=== PATIENT | female | born 1940 | race Caucasian/White ===

== ENCOUNTER 2016-12-16 13:30 | Emergency (ER) | payer MEDICARE, BC ==
[2016-12-16] MEDS ORDERED: Acetaminophen/oxyCODONE 325-5 MG Tab PO ONE (13:57)
[2016-12-16] MEDS ORDERED: Ibuprofen 600 MG Tab PO ONE (13:57)
[2016-12-16] MEDS ORDERED: Ondansetron 4 MG Tab.DIS PO ONE (13:58)
--- NOTE | 2016-12-16 14:00 | EDM.PDOC ---
ED HPI GENERAL MEDICAL PROBLEM - General Chief Complaint: Neck Problem Stated Complaint: STIFF NECK Time Seen by Provider: 12/16/16 13:55 Source of Information: Reports: Patient, Family (friend) History Limitations: Reports: No Limitations - History of Present Illness INITIAL COMMENTS - FREE TEXT/NARRATIVE: 76-year-old female presents to the ED due to severe right-sided cervical neck pain. No known falls or recent trauma. Pain was present yesterday but was milder. Today the pain is constant and severe and made worse by any movement. She more or less almost has to hold her head perfectly still sometimes has to hold onto the right side of her neck to walk or move particular to get out of bed. The radicular pain into either upper extremity or her down her back. No previous fractures of her cervical spine identified or known to her. She does have a history of osteoporosis and osteoarthritis. She took some Tylenol for pain this morning which did not help at all. 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 Neck Pain Score (Numeric/FACES): 7 - Related Data Allergies Allergy/AdvReac Type Severity Reaction Status Date / Time latex Allergy Swelling Verified 12/16/16 13:43 sertraline [From Zoloft] Allergy Rash Verified 12/16/16 13:43 Wrexqqy-Vrx-Ezm Reductase Allergy Leg Cramps Verified 12/16/16 13:43 Inhibitor Home Meds: Home Meds Diclofenac Sodium [Voltaren] 50 mg PO BIDMEALS #20 tab.ec 12/16/16 [Rx] oxyCODONE HCl/Acetaminophen [Percocet 5-325 mg Tablet] 1 - 2 each PO Q4H PRN # 12 tablet 12/16/16 [Rx] predniSONE [Deltasone] 20 mg PO ASDIRECTED #15 tablet 12/16/16 [Rx] Past Medical History HEENT History: Reports: Cataract Cardiovascular History: Reports: High Cholesterol, Hypertension Respiratory History: Reports: COPD, Pneumonia, Recurrent Gastrointestinal History: Reports: Chronic Constipation, GERD 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: 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, , Spontaneous Musculoskeletal History: Reports: Back Pain, Chronic, Gout, Other (See Below) Other Musculoskeletal History: gout to great toes bialteral Neurological History: Reports: Other (See Below) Other Neuro History: hemorrahgic stroke Endocrine/Metabolic History: Reports: Hypothyroidism Oncologic (Cancer) History: Reports: Basal Cell Carcinoma, Other (See Below) Other Oncologic History: from nose - Infectious Disease History Infectious Disease History: Reports: Chicken Pox, Measles, Mumps - Past Surgical History HEENT Surgical History: Reports: Cataract Surgery Female Surgical History: Reports: Hysterectomy Endocrine Surgical History: Reports: None Musculoskeletal Surgical History: Reports: Knee Replacement, Other (See Below) Other Musculoskeletal Surgeries/Procedures:: Right knee replacement and surgical plate in right thigh Social & Family History - Tobacco Use Smoking Status *Q: Former Smoker Used Tobacco, but Quit: Yes Month Tobacco Last Used: 15 years ago Second Hand Smoke Exposure: No - Caffeine Use Caffeine Use: Reports: Coffee - Recreational Drug Use Recreational Drug Use: No - Living Situation & Occupation Living situation: Reports: Occupation: Retired ED ROS GENERAL - Review of Systems Review Of Systems: See Below Constitutional: Denies: Fever, Chills, Malaise, Weakness, Fatigue, Decreased Appetite, Weight Loss HEENT: Reports: Glasses. Denies: Hearing Loss Respiratory: Reports: Shortness of Breath (On exertion.) Cardiovascular: Reports: Blood Pressure Problem, Dyspnea on Exertion ( Chronically). Denies: Chest Pain, Claudication, Edema, Lightheadedness, Orthopnea (Hypertension usually well-controlled with medication) : Reports: No Symptoms Musculoskeletal: Reports: Neck Pain (See history of present illness), Back Pain , Joint Pain Skin: Reports: No Symptoms (Knees and hips at times) Neurological: Reports: No Symptoms Psychiatric: Reports: No Symptoms ED EXAM, UPPER BACK/NECK PAIN - Physical Exam Exam: See Below Exam Limited By: No Limitations General Appearance: Alert, WD/WN, Moderate Distress Eye Exam: Bilateral Eye: Normal Inspection Ears Exam: Normal External Exam Throat/Mouth Exam: Normal Inspection, Normal Oropharynx Head Exam: Atraumatic, Normocephalic Neck Exam: Normal Alignment, Normal Inspection, Limited Range of Motion, Muscle Spasm, Painful Range of Motion (Moderate right side of the neck. From cervical 4 -6 cervical 7.), Paraspinous Muscle Tender (Right paraspinal neck), Stiff Neck, Tenderness, Tender Lateral. No: Spinous Processes Tender Nexus Criteria: No: Posterior, Midline Cervical Tenderness, Evidence of Intoxication, Altered Level of Consciousness, Focal Neurological Deficit, Painful Distraction Injuries Cardiovascular/Respiratory: Regular Rate, Rhythm Course - Vital Signs Last Recorded V/S: Last Vital Signs Temp 36.3 C 12/16/16 13:39 Pulse 72 12/16/16 13:39 Resp 18 12/16/16 13:39 BP 149/65 H 12/16/16 13:39 Pulse Ox 93 L 12/16/16 13:39 - Orders/Labs/Meds Orders: Active Orders 24 hr Category Date Time Status Cervical Spine wo Cont [CT] Stat Exams 12/16/16 13:56 Taken Meds: Medications Discontinued Medications Generic Name Dose Route Start Last Admin Trade Name Freq PRN Reason Stop Dose Admin Ibuprofen 600 mg 12/16/16 13:57 12/16/16 14:06 Motrin PO 12/16/16 13:58 600 mg ONETIME ONE Administration Ondansetron HCl 4 mg 12/16/16 13:58 12/16/16 14:06 Zofran Odt PO 12/16/16 13:59 4 mg ONETIME ONE Administration Oxycodone/Acetaminophen 1 tab 12/16/16 13:57 12/16/16 14:06 Percocet 325-5 Mg PO 12/16/16 13:58 1 tab ONETIME ONE Administration Prednisone 20 mg 12/16/16 14:28 Prednisone PO 12/16/16 14:29 ONETIME ONE - Radiology Interpretation Free Text/Narrative:: 76-year-old female presents the ED with severe right-sided neck pain. Pain was present yesterday when she awoke and is gradually worsened since that time. Today she has to hold onto her neck to walk or move. Pain is excruciating. No known falls or recent injuries. Sleeping in a normal bed and her normal pillow. By history she does have some osteoarthritis and osteoporosis. Denies any radiculopathy into her right upper arm extremity or down her right upper back. No previous fractures in her cervical spine that she knows of. Exam reveals marked tenderness throughout the mid and lower cervical spine on the right side. Mild overlying muscle spasm. Plan CT cervical spine to be done. Given Motrin 600 mg by mouth and 1 Percocet 5/3/25 milligram tablet per mouth as well as Zofran 4 mg for pain relief. - Re-Assessments/Exams Free Text/Narrative Re-Assessment/Exam: 12/16/16 14:15 CT cervical spine reveals degenerative changes that correlate with her area of marked tenderness at the C3 C4 C5 level on the right side it is much worse on the right side as compared to the left. Her abdomen maladies appreciated. Patient will be placed on a short course of steroids 29 g of prednisone twice a day for 5 days and then once daily in the morning for another 5 days. This will be in combination with Voltaren 50 mg twice a day for 10 days. This is provisional after I see her med list as it was not available on my initial evaluation. 12/16/16 14:34 her med list has no contraindications. The above medications are therefore filled and also 12 tablets of Percocet were provided 5/325 milligrams strength one every 6 hours as necessary for pain relief as she didn't sleep at all last night due to the severity of the pain. 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 predniSONE [Deltasone] 20 mg PO ASDIRECTED #15 tablet Instructions: Osteoarthritis Referrals: Linda Holloway [employer] [employer] [Primary Care Provider] - Forms: ED Department Discharge Additional Instructions: Evaluation the emergency room today in regards to acute onset of severe right- sided neck pain for no apparent reason. Examination reveals marked tenderness along the bones of the cervical spine particularly the mid spine C3 C4 C5. CT of the neck bones was carried out and reveals advanced degenerative arthritic changes in the facet joints on the right side as compared to the left. This is the source of your pain. Treatment is therefore medications to try and reduce the pain and inflammation in this area. Use Deltasone 20 mg with breakfast and supper for 5 days and then once daily in the morning for another 5 days. First tablet was provided through the ED today. Secondly may use Voltaren 50 mg twice daily for 10 days to days pain and inflammation. Thirdly Percocet tablet 5/3/25 milligrams strength one tablet every 4-6 hours as necessary for pain relief with a little fluid in your stomach. Hopefully the neck pain will settle down fairly promptly over the next 4872 hours with the anti-inflammatory medications. Lopressor personal physician if not markedly improved in 7-10 days time. - My Orders Last 24 Hours: My Active Orders 12/16/16 13:56 Cervical Spine wo Cont [CT] Stat - Assessment/Plan Last 24 Hours: My Active Orders 12/16/16 13:56 Cervical Spine wo Cont [CT] Stat
[2016-12-16] MEDS ORDERED: predniSONE 20 MG Tab PO ONE (14:28)
--- NOTE | 2016-12-16 14:36 | CT ---
CT cervical spine Technique: Multiple axial sections were obtained from above C1 inferiorly to the bottom of T2. Reconstructed sagittal and coronal images were reviewed. Comparison: No previous cervical spine imaging. Findings: Degenerative change is noted between the dens and anterior arch of C1. Severe disc space narrowing noted at C4-C5, C5-C6 and C6-C7. Mild disc space narrowing noted at C3-C4 and C7-T1. Anterior endplate osteophytes are seen at C3-C4 through C7-T1. Mild degenerative spurring noted within the uncovertebral joints throughout the cervical spine. Vacuum phenomena is seen within the C4-C5 disc. Visualized mastoid sinuses and middle ear cavities are clear. Posterior skull base is intact. Mild right-sided neural foraminal stenosis noted at C3-C4. Minimal left-sided neural foraminal stenosis is noted at C3-C4. Moderate right-sided neural foraminal stenosis noted at C4-C5. Mild left-sided neural foraminal stenosis is noted at C4-C5. Mild bilateral neural foraminal stenosis is noted at C5-C6 and C6-C7. No bony central canal stenosis is noted. No acute fracture or abnormal subluxation is seen. Mild diffuse degenerative apophyseal change is seen. Impression: 1. Diffuse degenerative change as described above. No acute abnormality is seen. Diagnostic code #3
== END 2016-12-16 15:05 | disposition home or self-care (01) ==
LOC: JD.ED 13:30
DX: M47.812 Spondylosis without myelopathy or radiculopathy, cervical region (principal); Z91.040 Latex allergy status; Z88.8 Allergy status to other drugs, medicaments and biological substances; Z87.891 Personal history of nicotine dependence
CPT/HCPCS: 72125; 99284; A9270

== ENCOUNTER 2017-03-28 09:36 | Emergency (ER) | payer MEDICARE, BC ==
--- NOTE | 2017-03-28 11:39 | EDM.PDOC ---
ED HPI GENERAL MEDICAL PROBLEM - General Chief Complaint: Fever Stated Complaint: FEVER/SORE THROAT Time Seen by Provider: 03/28/17 11:10 Source of Information: Reports: Patient History Limitations: Reports: No Limitations - History of Present Illness INITIAL COMMENTS - FREE TEXT/NARRATIVE: Su is a pleasant 76yo female presents with 2-3 days hx of itchy, watery eyes, sinus congestion, this morning with sore thoat and cough. She had a low grade fever of "100" overnight with chills. No n/v/d, no back or abd pain. No CP , SOB or dizziness, she does have a dull headache. She has taken tylenol with minimal relief of symptoms. Eyes were both "glued shut" this morning. No sick contacts that she is aware of. She does not get flu shot as "I am allergic to latex". She also reports 2 wk hx of "black discharge" from her left nipple and a sensation of heaviness to her left breast. She is due for mammogram in July, prior mammo's have been normal. She states "I have lumpy breasts" so "I don't do breast exams". Other than recent development of cough 2-3 days ago she has not had cough, SOB. No axilla pain, swelling, pressure or tenderness. She swims and does water aerobics "10 hours a week" at the [facility]. PCP is MELANIE De Souza with [facility]. Onset: Gradual (2-3 days) Duration: Getting Worse Location: Reports: Head, Face (eyes, throat, cough) Quality: Reports: Burning (to eyes bilat) Severity: Moderate Improves with: Reports: None Worsens with: Reports: None Associated Symptoms: Reports: Cough, Fever/Chills, Headaches. 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 Throat Pain Score (Numeric/FACES): 7 - Related Data Allergies Allergy/AdvReac Type Severity Reaction Status Date / Time latex Allergy Swelling Verified 03/28/17 09:51 sertraline [From Zoloft] Allergy Rash Verified 03/28/17 09:51 Cwaklla-Vlt-Nah Reductase Allergy Leg Cramps Verified 03/28/17 09:51 Inhibitor Home Meds: Home Meds Aspirin 81 mg PO DAILY 03/28/17 [History] Calcium Carbonate [Calcium] 1 tab PO DAILY 03/28/17 [History] Denosumab [Prolia] 1 injection SUBCUT ASDIRECTED 03/28/17 [History] L.acidoph,Paracasei, B.lactis [Probiotic] 1 cap PO DAILY 03/28/17 [History] Levothyroxine 25 mg PO DAILY 03/28/17 [History] Lisinopril 30 mg PO DAILY 03/28/17 [History] Multivitamin [Multivitamins] 1 cap PO DAILY 03/28/17 [History] Omeprazole Magnesium [Prilosec Otc] 20 mg PO DAILY 03/28/17 [History] Potassium Chloride 20 meq PO DAILY 03/28/17 [History] Sucralfate [Carafate] 1 gram PO QID 03/28/17 [History] Ubidecarenone [Coenzyme Q-10] 30 mg PO DAILY 03/28/17 [History] amLODIPine Besylate [Amlodipine Besylate] 10 mg PO DAILY 03/28/17 [History] Past Medical History HEENT History: Reports: Cataract Cardiovascular History: Reports: High Cholesterol, Hypertension Respiratory History: Reports: COPD, Pneumonia, Recurrent Gastrointestinal History: Reports: Chronic Constipation, GERD 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: 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, , Spontaneous Musculoskeletal History: Reports: Back Pain, Chronic, Gout, Other (See Below) Other Musculoskeletal History: gout to great toes bialteral Neurological History: Reports: Other (See Below) Other Neuro History: hemorrahgic stroke Endocrine/Metabolic History: Reports: Hypothyroidism Oncologic (Cancer) History: Reports: Basal Cell Carcinoma, Other (See Below) Other Oncologic History: from nose - Infectious Disease History Infectious Disease History: Reports: Chicken Pox, Measles, Mumps - Past Surgical History HEENT Surgical History: Reports: Cataract Surgery GI Surgical History: Reports: Cholecystectomy Female Surgical History: Reports: Hysterectomy Endocrine Surgical History: Reports: None Musculoskeletal Surgical History: Reports: Knee Replacement, Other (See Below) Other Musculoskeletal Surgeries/Procedures:: Right knee replacement and surgical plate in right thigh Social & Family History - Tobacco Use Smoking Status *Q: Former Smoker Used Tobacco, but Quit: Yes Month Tobacco Last Used: 1979 Second Hand Smoke Exposure: No - Caffeine Use Caffeine Use: Reports: Coffee, Tea - Recreational Drug Use Recreational Drug Use: No - Living Situation & Occupation Living situation: Reports: Occupation: Retired ED ROS ENT - Review of Systems Review Of Systems: See Below Constitutional: Reports: Fever, Chills. Denies: Weakness, Fatigue HEENT: Reports: Ear Pain (right side), Eye Discharge, Rhinitis, Throat Pain. Denies: Vertigo Respiratory: Reports: Cough. Denies: Shortness of Breath, Wheezing, Pleuritic Chest Pain, Sputum Cardiovascular: Reports: No Symptoms. Denies: Chest Pain, Dyspnea on Exertion, Lightheadedness Endocrine: Reports: Fatigue GI/Abdominal: Reports: No Symptoms : Reports: No Symptoms Skin: Reports: Other ("black discharge" from lt nipple intermittent, has to squeeze it to come out, is not spontaneous drainage, x 2 wks. ) Neurological: Reports: No Symptoms Psychiatric: Reports: No Symptoms Hematologic/Lymphatic: Reports: Swollen Glands (right side of neck x 2-3 days) Immunologic: Reports: Other (latex allergy) ED EXAM, ENT - Physical Exam Exam: See Below Exam Limited By: No Limitations General Appearance: Alert, WD/WN, No Apparent Distress Eye Exam: Bilateral Eye: Conjunctival Injection (medial bilat), EOMI, PERRL Ears: Normal External Exam, Normal Canal, Hearing Grossly Normal, TM Fluid ( mild bilat) Nose: Normal Inspection, Normal Mucousa Mouth/Throat: Normal Inspection, Normal Gums, Normal Lips, Pharyngeal Erythema, Other (dentures) Head: Atraumatic, Normocephalic Neck: Normal Inspection, Lymphadenopathy (R) (with tenderness to palp) Respiratory/Chest: No Respiratory Distress, Lungs Clear, Normal Breath Sounds Cardiovascular: Normal Peripheral Pulses, Regular Rate, Rhythm, No Edema, No Murmur GI/Abdominal: Normal Bowel Sounds, Soft, Non-Tender (Female) Exam: Deferred Rectal (Female) Exam: Deferred Extremities: Normal Inspection, Non-Tender, No Pedal Edema, Normal Capillary Refill Neurological: Alert, Oriented, Normal Cognition, Normal Gait Psychiatric: Normal Affect, Normal Mood Skin: Warm, Dry, Intact, Other (breast exam is with fibrous tissue noted bilat, no obvious masses, no axillary adenopathy. Patient able to express minimal clear to white discharge from left nipple, culture swab is obtained. ) Lymphatic: Adenopathy (right anterior cervical nodes) Course - Vital Signs Last Recorded V/S: Last Vital Signs Temp 97.4 F 01/21/18 09:45 Pulse 74 03/28/17 09:45 Resp 13 03/28/17 09:45 BP 163/77 H 03/28/17 09:45 Pulse Ox 96 03/28/17 09:45 - Orders/Labs/Meds Orders: Active Orders 24 hr Category Date Time Status CULTURE WOUND [RM] Stat Lab 03/28/17 11:15 Received - Re-Assessments/Exams Free Text/Narrative Re-Assessment/Exam: 03/28/17 11:44 Patient presents with 2-3 day hx of URI symptoms, fever, ear pain, throat pain, eye irritation and discharge and cough. She also has noted black discharge, intermittently to left nipple which is manually expressed for 2 weeks. She has felt a heaviness sensation to her left breast since that time also. CXR will be obtained, reviewed with patient that mammogram is not able to be obtained in the ED, she is to follow up with her PCP, Jessica Holloway early this next week for recheck of breast exam, mammogram. Culture is obtained of minimal discharge to left nipple. She will be screened for influenza. Reviewed with patient if influenza is negative will treat with opthalmic antibiotic drops and PO antibiotic for worsening sinusitis symptoms. Awaiting CXR and flu swab results. Free Text/Narrative Re-Assessment/Exam: 03/28/17 13:00 Negative flu swab. CXR is reviewed with Dr. Edgar. No acute findings noted other than right sided hemidiaphragm. No masses or nodules noted. Will treat patient with ofloxacin opthalmic eye drops and Amoxicillin 500mg TID x 7 days for URI/sinusitis symptoms. Culture of nipple discharge is pending. She is to follow up with PCP, Shahrzad Holloway early next week for mammogram and further evaluation of breast discharge. Departure - Departure Time of Disposition: 13:02 Disposition: Home, Self-Care 01 Condition: Good Clinical Impression: Nipple discharge in female Sinusitis Qualifiers: Sinusitis location: frontal Chronicity: acute Recurrence: non-recurrent Qualified Code(s): J01.10 - Acute frontal sinusitis, unspecified Conjunctivitis Qualifiers: Conjunctivitis type: acute Acute conjunctivitis type: unspecified Laterality: bilateral Qualified Code(s): H10.33 - Unspecified acute conjunctivitis, bilateral - Discharge Information Instructions: Sinusitis, Adult, [id number], Bacterial Conjunctivitis Referrals: Linda Holloway, [employer] [Primary Care Provider] - Forms: ED Department Discharge Additional Instructions: Eye drops to be used 2 drops each eye 4 times daily x 5 days Oral antibiotic to be used 3 times daily x 7 days Push fluids Probiotic is recommended daily x 1 month You can still swim and attend rec center activities Follow up with Jessica Holloway, PCP early next week for further evaluation of breast pain and nipple discharge. Culture results will take 48 hours to be final. Return to ER if needed for questions, concerns or other problems. - My Orders Last 24 Hours: My Active Orders 03/28/17 11:15 CULTURE WOUND [RM] Stat - Assessment/Plan Last 24 Hours: My Active Orders 03/28/17 11:15 CULTURE WOUND [RM] Stat
--- NOTE | 2017-03-28 12:12 | CR ---
Chest: 2 views of the chest were obtained. Comparison: Prior chest x-ray of 04/11/13. Lobulation of both hemidiaphragms are seen. Heart size is normal. Upper mediastinum is within normal limits. Lungs are clear without acute parenchymal density. Scattered degenerative change is noted within the spine on the lateral view. Surgical clips are noted from prior cholecystectomy. Impression: 1. Incidental findings. Nothing acute is identified. Diagnostic code #2
== END 2017-03-28 13:51 | disposition home or self-care (01) ==
LOC: JD.ED 09:36
DX: J01.10 Acute frontal sinusitis, unspecified (principal); H10.33 Unspecified acute conjunctivitis, bilateral; R89.9 Unspecified abnormal finding in specimens from other organs, systems and tissues; I10 Essential (primary) hypertension; E78.00 Pure hypercholesterolemia, unspecified; E03.9 Hypothyroidism, unspecified; Z79.899 Other long term (current) drug therapy; Z87.891 Personal history of nicotine dependence; Z79.82 Long term (current) use of aspirin; Z91.040 Latex allergy status; Z88.8 Allergy status to other drugs, medicaments and biological substances
CPT/HCPCS: 71046; 71046-26; 87070; 87804; 99283; 99284

== ENCOUNTER 2017-03-31 10:03 | Emergency (ER) | payer MEDICARE, BC ==
--- NOTE | 2017-03-31 10:38 | EDM.PDOC ---
ED HPI GENERAL MEDICAL PROBLEM - General Chief Complaint: Syncope Stated Complaint: [facility] Time Seen by Provider: 03/31/17 10:37 Source of Information: Reports: Patient - History of Present Illness INITIAL COMMENTS - FREE TEXT/NARRATIVE: Patient is brought here today by ambulance from [facility] after a syncopal episode during a mammogram. Patient denies feeling ill, she denies any current dyspnea or chest pain. Denies any dizziness or headache. Patient states that she was feeling well this morning, hadn't been out on an apple for breakfast which is normal for her. She's been at the [facility] for 3 hours which is her normal routine. She typically attends water aerobics 5:30 AM and 8 AM and symptoms of a pool in between. She states that since her previous CVA she tries to be as active as possible and this is her normal routine. Patient was feeling well when she arrived for her mammogram. She states that she did have some pain during the mammogram and felt dizzy and hot and like she was going to pass out. She states that the next thing she remembers she was lying on the floor and the EMT was talking to her. Patient currently denies any pain or symptoms. 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 She states that she did have some right-sided weakness and right foot drop after this, states that she's been working very hard to get her strength back and is pretty much normal. She uses no assistive devices to walk. She states that she was on a third floor apartment and goes up 32 stairs frequently. - Related Data Allergies Allergy/AdvReac Type Severity Reaction Status Date / Time latex Allergy Swelling Verified 03/31/17 10:31 sertraline [From Zoloft] Allergy Rash Verified 03/31/17 10:31 Oazeyfg-Zlo-Ipo Reductase Allergy Leg Cramps Verified 03/31/17 10:31 Inhibitor Home Meds: Home Meds Aspirin 162 mg PO DAILY 03/28/17 [History] Calcium Carbonate [Calcium] 1 tab PO DAILY 03/28/17 [History] L.acidoph,Paracasei, B.lactis [Probiotic] 1 cap PO DAILY 03/28/17 [History] Levothyroxine 25 mg PO DAILY 03/28/17 [History] Lisinopril 30 mg PO DAILY 03/28/17 [History] Multivitamin [Multivitamins] 1 cap PO DAILY 03/28/17 [History] Omeprazole Magnesium [Prilosec Otc] 20 mg PO DAILY 03/28/17 [History] Potassium Chloride 20 meq PO DAILY 03/28/17 [History] Ubidecarenone [Coenzyme Q-10] 30 mg PO DAILY 03/28/17 [History] amLODIPine Besylate [Amlodipine Besylate] 10 mg PO DAILY 03/28/17 [History] Amoxicillin 500 mg PO TID 03/31/17 [History] Past Medical History HEENT History: Reports: Cataract Cardiovascular History: Reports: High Cholesterol, Hypertension Respiratory History: Reports: COPD, Pneumonia, Recurrent Gastrointestinal History: Reports: Chronic Constipation, GERD 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: Reports: 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, , Spontaneous Musculoskeletal History: Reports: Back Pain, Chronic, Gout, Other (See Below) Other Musculoskeletal History: gout to great toes bialteral Neurological History: Reports: Other (See Below) Other Neuro History: hemorrahgic stroke Endocrine/Metabolic History: Reports: Hypothyroidism Oncologic (Cancer) History: Reports: Basal Cell Carcinoma, Other (See Below) Other Oncologic History: from nose - Infectious Disease History Infectious Disease History: Reports: Chicken Pox, Measles, Mumps - Past Surgical History HEENT Surgical History: Reports: Cataract Surgery GI Surgical History: Reports: Cholecystectomy Female Surgical History: Reports: Hysterectomy Endocrine Surgical History: Reports: None Musculoskeletal Surgical History: Reports: Knee Replacement, Other (See Below) Other Musculoskeletal Surgeries/Procedures:: Right knee replacement and surgical plate in right thigh Social & Family History - Tobacco Use Smoking Status *Q: Former Smoker Used Tobacco, but Quit: Yes Month Tobacco Last Used: 1979 Second Hand Smoke Exposure: No - Caffeine Use Caffeine Use: Reports: Coffee, Tea - Recreational Drug Use Recreational Drug Use: No - Living Situation & Occupation Living situation: Reports: Occupation: Retired ED ROS GENERAL - Review of Systems Review Of Systems: See Below Constitutional: Denies: Fever, Chills, Malaise, Weakness, Fatigue HEENT: Reports: No Symptoms Respiratory: Reports: No Symptoms Cardiovascular: Reports: No Symptoms Endocrine: Reports: No Symptoms GI/Abdominal: Reports: Nausea (After syncopal episode). Denies: Abdominal Pain , Anorexia, Constipation, Diarrhea, Decreased Appetite, Vomiting : Reports: No Symptoms Musculoskeletal: Reports: No Symptoms Skin: Reports: No Symptoms Neurological: Reports: Syncope, Other (Pt notes mild Right foot drop from previous CVA). Denies: Confusion, Dizziness, Headache, Numbness, Tingling, Weakness Psychiatric: Reports: No Symptoms - Physical Exam Exam: See Below Exam Limited By: No Limitations General Appearance: Alert, WD/WN, No Apparent Distress Eye Exam: Bilateral Eye: PERRL Ears: Normal External Exam, Normal Canal, Normal TMs, Hearing Loss (Chronic) Nose: Normal Inspection Throat/Mouth: Normal Inspection, Normal Oropharynx Head Exam: Atraumatic, Normocephalic Neck: Normal Inspection, Supple, Non-Tender Respiratory/Chest: No Respiratory Distress, Other (Decreased lung movement at the bases bilaterally) Cardiovascular: Normal Peripheral Pulses, Regular Rate, Rhythm, No Edema, No Murmur GI/Abdominal: Normal Bowel Sounds, Soft, Non-Tender Neuro Exam (Abbreviated): Alert, Oriented, No Motor/Sensory Deficits Extremities: Normal Inspection, No Pedal Edema, Normal Capillary Refill Psychiatric: Normal Affect, Normal Mood Skin Exam: Warm, Dry, Intact EKG INTERPRETATION EKG Date: 03/31/17 Time: 10:13 Rhythm: NSR EKG Interpretation Comments: Reviewed with Dr Edgar Early R wave transition QT moderately prolonged Course - Vital Signs Last Recorded V/S: Last Vital Signs Temp 96.2 F 03/31/17 10:05 Pulse 63 03/31/17 11:09 Resp 18 03/31/17 10:05 BP 169/75 H 03/31/17 11:09 Pulse Ox 95 03/31/17 10:05 - Orders/Labs/Meds Labs: Laboratory Tests 03/31/17 03/31/17 03/31/17 Range/Units 10:15 10:15 10:15 WBC 6.26 (3.98-10.04) K/mm3 RBC 5.11 (3.98-5.22) M/mm3 Hgb 15.2 (11.2-15.7) gm/L Hct 45.3 H (34.1-44.9) % MCV 88.6 (79.4-94.8) fl MCH 29.7 (25.6-32.2) pg MCHC 33.6 (32.2-35.5) g/dl RDW Std Deviation 44.4 (36.4-46.3) fL Plt Count 233 (182-369) K/mm3 MPV 10.7 (9.4-12.3) fl Neutrophils % (Manual) 53 (40-60) % Band Neutrophils % 0 (0-10) % Lymphocytes % (Manual) 40 (20-40) % Atypical Lymphs % 0 % Monocytes % (Manual) 6 (2-10) % Eosinophils % (Manual) 1 (0.7-5.8) % Basophils % (Manual) 0 L (0.1-1.2) Platelet Estimate Adequate RBC Morph Comment Normal PT 10.2 (8.0-13.0) SECONDS INR 0.94 Sodium 144 (136-145) mEq/L Potassium 4.4 (3.5-5.1) mEq/L Chloride 106 (98-107) mEq/L Carbon Dioxide 27 (21-32) mEq/L Anion Gap 15.4 H (5-15) BUN 14 (7-18) mg/dL Creatinine 0.8 (0.55-1.02) mg/dL Est Cr Clr Drug Dosing 45.84 mL/min Estimated GFR (MDRD) > 60 (>60) mL/min BUN/Creatinine Ratio 17.5 (14-18) Glucose 128 H (83-115) mg/dL Calcium 9.7 (8.5-10.1) mg/dL Total Bilirubin 0.3 (0.2-1.0) mg/dL AST 19 (15-37) U/L ALT 17 (14-59) U/L Alkaline Phosphatase 126 H (46-116) U/L Troponin I < 0.017 (0.00-0.056) ng/mL C-Reactive Protein 0.3 (<1.0) mg/dL Total Protein 7.2 (6.4-8.2) g/dl Albumin 3.5 (3.4-5.0) g/dl Globulin 3.7 gm/dL Albumin/Globulin Ratio 1.0 (1-2) Urine Color (Yellow) Urine Appearance (Clear) Urine pH (5.0-8.0) Ur Specific [place] (1.005-1.030) Urine Protein (Negative) Urine Glucose (UA) (Negative) Urine Ketones (Negative) Urine Occult Blood (Negative) Urine Nitrite (Negative) Urine Bilirubin (Negative) Urine Urobilinogen (0.2-1.0) Ur Leukocyte Esterase (Negative) Urine RBC (0-5) /hpf Urine WBC (0-5) /hpf Ur Epithelial Cells (0-5) /hpf Urine Bacteria (FEW) /hpf Urine Mucus (FEW) /hpf 03/31/17 Range/Units 11:51 WBC (3.98-10.04) K/mm3 RBC (3.98-5.22) M/mm3 Hgb (11.2-15.7) gm/L Hct (34.1-44.9) % MCV (79.4-94.8) fl MCH (25.6-32.2) pg MCHC (32.2-35.5) g/dl RDW Std Deviation (36.4-46.3) fL Plt Count (182-369) K/mm3 MPV (9.4-12.3) fl Neutrophils % (Manual) (40-60) % Band Neutrophils % (0-10) % Lymphocytes % (Manual) (20-40) % Atypical Lymphs % % Monocytes % (Manual) (2-10) % Eosinophils % (Manual) (0.7-5.8) % Basophils % (Manual) (0.1-1.2) Platelet Estimate RBC Morph Comment PT (8.0-13.0) SECONDS INR Sodium (136-145) mEq/L Potassium (3.5-5.1) mEq/L Chloride (98-107) mEq/L Carbon Dioxide (21-32) mEq/L Anion Gap (5-15) BUN (7-18) mg/dL Creatinine (0.55-1.02) mg/dL Est Cr Clr Drug Dosing mL/min Estimated GFR (MDRD) (>60) mL/min BUN/Creatinine Ratio (14-18) Glucose (83-115) mg/dL Calcium (8.5-10.1) mg/dL Total Bilirubin (0.2-1.0) mg/dL AST (15-37) U/L ALT (14-59) U/L Alkaline Phosphatase (46-116) U/L Troponin I (0.00-0.056) ng/mL C-Reactive Protein (<1.0) mg/dL Total Protein (6.4-8.2) g/dl Albumin (3.4-5.0) g/dl Globulin gm/dL Albumin/Globulin Ratio (1-2) Urine Color Yellow (Yellow) Urine Appearance Clear (Clear) Urine pH 7.0 (5.0-8.0) Ur Specific [place] 1.015 (1.005-1.030) Urine Protein Negative (Negative) Urine Glucose (UA) Negative (Negative) Urine Ketones Negative (Negative) Urine Occult Blood Negative (Negative) Urine Nitrite Negative (Negative) Urine Bilirubin Negative (Negative) Urine Urobilinogen 0.2 (0.2-1.0) Ur Leukocyte Esterase Negative (Negative) Urine RBC Not seen (0-5) /hpf Urine WBC 0-5 (0-5) /hpf Ur Epithelial Cells 0-5 (0-5) /hpf Urine Bacteria Few (FEW) /hpf Urine Mucus Few (FEW) /hpf Meds: Medications Discontinued Medications Generic Name Dose Route Start Last Admin Trade Name Freq PRN Reason Stop Dose Admin Sodium Chloride 1,000 mls @ 999 mls/hr 03/31/17 10:55 03/31/17 11:08 Normal Saline IV 03/31/17 11:55 999 mls/hr ONETIME ONE Administration - Radiology Interpretation Free Text/Narrative:: Chest x-ray demonstrates lobulated right hemidiaphragm and compression deformities within the spine which appears stable. Degenerative changes within the spine as well as mild scoliosis. Nothing acute is seen and no significant change from previous x-ray. Head CT demonstrates mild senescent change, no acute intracranial abnormality identified. - Re-Assessments/Exams Free Text/Narrative Re-Assessment/Exam: Neurologic exam is completely normal. Patient is completely asymptomatic in the emergency room today. WBC 6260 with 53% neutrophils and no bands. Glucose is 128. Troponin is negative. CRP 0.3. Unsure specific cause for syncope, patient was under some stress as she is being worked up for bloody discharge from her breast by her PCP. She was in the process of mammogram with this happen. She had also eaten a very small breakfast and worked out for 3 hours prior to this. Recommend the patient eats a more substantial breakfast and drink adequate fluids. She is to follow-up with her PCP within the week for both syncopal episode as well as her breast discharge or return to the emergency room if needed. 03/31/17 13:06 Departure - Departure Time of Disposition: 13:03 Disposition: Home, Self-Care 01 Condition: Good Clinical Impression: Syncope - Discharge Information Referrals: Linda Holloway NP [Primary Care Provider] - Forms: ED Department Discharge Additional Instructions: You were evaluated in the emergency room today for an episode of fainting. Your workup today was completely normal including her heart enzymes and a CT scan of your head. I recommend that you try to eat a very little bit bigger breakfast in the morning as well as drink plenty of water when you are working out twice in the morning. Follow up with your primary provider within the next week or certainly return to the emergency room if needed.
[2017-03-31] MEDS ORDERED: Sodium Chloride 0.9% 1,000 ML IV ONE (10:55)
--- NOTE | 2017-03-31 12:06 | CR ---
Chest: Two views of the chest were obtained. Comparison: Prior chest x-ray of 03/28/17. Lobulated right hemidiaphragm is noted. Heart size is normal. Upper mediastinum is normal. Lungs are clear with no acute infiltrates. Compression deformities are seen within the spine which appear stable. Degenerative change noted within the spine as well as mild scoliosis. Prior cholecystectomy is seen. Impression: 1. Incidental findings. Nothing acute is seen. No significant change is seen from previous chest x-ray. Diagnostic code #2
--- NOTE | 2017-03-31 12:06 | CT ---
Head CT Technique: Multiple axial sections through the brain were obtained. Intravenous contrast was not utilized. Comparison: No previous intracranial imaging. Findings: Ventricles along with basal cisterns and sulci over the convexities are within normal limits for the patient's age. Mild diminished density is noted within portions of the periventricular white matter compatible with small vessel ischemic demyelination change. No other abnormal parenchymal densities are seen. No evidence of intracranial hemorrhage. No midline shift or mass effect is seen. Bone window settings were reviewed which show no acute calvarial abnormality. Visualized sinuses are clear. Impression: 1. Mild senescent change as noted above. 2. No acute intracranial abnormality is identified. Diagnostic code #2
== END 2017-03-31 13:15 | disposition home or self-care (01) ==
LOC: JD.ED 10:03 → SUPCPDRO 10:03 → JD.ED 13:15
DX: R55 Syncope and collapse (principal); E78.00 Pure hypercholesterolemia, unspecified; I10 Essential (primary) hypertension; K21.9 Gastro-esophageal reflux disease without esophagitis; Z91.040 Latex allergy status; Z88.8 Allergy status to other drugs, medicaments and biological substances; Z79.899 Other long term (current) drug therapy; Z79.82 Long term (current) use of aspirin; Z87.891 Personal history of nicotine dependence
CPT/HCPCS: 36415; 70450; 71046; 80053; 81001; 84484; 85025; 85610; 86140; 93005; 96360; 96361; 99285; J7040; 93010

== ENCOUNTER 2017-10-27 09:56 | Emergency (ER) | payer MEDICARE, BC ==
[2017-10-27] MEDS ORDERED: Sodium Chloride 0.9% 10 ML Syringe FLUSH PRN (10:37)
[2017-10-27] MEDS ORDERED: Metoprolol Tartrate 50 MG Tab PO ONE (10:37)
[2017-10-27] MEDS ORDERED: Acetaminophen 325 MG Tab PO ONE (10:37)
--- NOTE | 2017-10-27 11:47 | EDM.PDOC ---
ED HPI GENERAL MEDICAL PROBLEM - General Chief Complaint: Cardiovascular Problem Stated Complaint: HIGH BLOOD PRESSURE Time Seen by Provider: 10/27/17 10:12 Source of Information: Reports: Patient, Family, RN Notes Reviewed - History of Present Illness INITIAL COMMENTS - FREE TEXT/NARRATIVE: 77-year-old lady comes in with concerns over elevated blood pressure readings at home over the last 2 or 3 days. She's been having difficulty with generalized headache that has not gone away, also becoming more bothersome. She does have history of previous stroke many years ago. Is on both lisinopril and amlodipine. Arm assist told her about 7 months ago that the meds were " about the same, that she should stop the lisinopril so she has not been on that medication for about 7 months, nothing else prescribed to take its place. She' s had no chest pain or difficulty breathing. No fever chills or other unusual symptomatology. Headache Pain Score (Numeric/FACES): 5 - Related Data Allergies Allergy/AdvReac Type Severity Reaction Status Date / Time latex Allergy Swelling Verified 03/31/17 10:31 sertraline [From Zoloft] Allergy Rash Verified 03/31/17 10:31 Sxfmksp-Lhn-Ipw Reductase Allergy Leg Cramps Verified 03/31/17 10:31 Inhibitor Home Meds: Home Meds Aspirin 162 mg PO DAILY 03/28/17 [History] Calcium Carbonate [Calcium] 1 tab PO DAILY 03/28/17 [History] Levothyroxine 25 mcg PO DAILY 03/28/17 [History] Multivitamin [Multivitamins] 1 cap PO DAILY 03/28/17 [History] Potassium Chloride 20 meq PO DAILY 03/28/17 [History] Ubidecarenone [Coenzyme Q-10] 30 mg PO DAILY 03/28/17 [History] amLODIPine Besylate [Amlodipine Besylate] 10 mg PO DAILY 03/28/17 [History] Diltiazem HCl [Diltiazem 24Hr Cd] 120 mg PO DAILY #30 cap.er.24h 10/27/17 [Rx] Past Medical History HEENT History: Reports: Cataract Other HEENT History: wears eyeglasses. 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: Reports: 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, , Spontaneous Musculoskeletal History: Reports: Back Pain, Chronic, Gout, Other (See Below) Other Musculoskeletal History: gout to great toes bialteral Neurological History: Reports: CVA, Other (See Below) Other Neuro History: hemorrahgic stroke Endocrine/Metabolic History: Reports: Hypothyroidism Oncologic (Cancer) History: Reports: Basal Cell Carcinoma, Other (See Below) Other Oncologic History: from nose - Infectious Disease History Infectious Disease History: Reports: Chicken Pox, Measles, Mumps - Past Surgical History HEENT Surgical History: Reports: Cataract Surgery GI Surgical History: Reports: Cholecystectomy Female Surgical History: Reports: Hysterectomy Endocrine Surgical History: Reports: None Musculoskeletal Surgical History: Reports: Knee Replacement, Other (See Below) Other Musculoskeletal Surgeries/Procedures:: Right knee replacement and surgical plate in right thigh Social & Family History - Tobacco Use Smoking Status *Q: Former Smoker Used Tobacco, but Quit: Yes Month/Year Tobacco Last Used: 2000 - Caffeine Use Caffeine Use: Reports: Coffee - Recreational Drug Use Recreational Drug Use: No - Living Situation & Occupation Living situation: Reports: Occupation: Retired ED ROS GENERAL - Review of Systems Review Of Systems: See Below Constitutional: Denies: Fever, Chills, Diaphoresis HEENT: Denies: Rhinitis, Sinus Problem, Throat Pain Respiratory: Denies: Shortness of Breath Cardiovascular: Denies: Chest Pain GI/Abdominal: Denies: Abdominal Pain, Nausea, Vomiting : Reports: No Symptoms Musculoskeletal: Reports: No Symptoms Skin: Reports: No Symptoms Neurological: Reports: Headache. Denies: Numbness, Tingling, Trouble Speaking, Difficulty Walking, Weakness ED EXAM, GENERAL - Physical Exam Exam: See Below General Appearance: Alert, No Apparent Distress Eye Exam: Bilateral Eye: PERRL Throat/Mouth: Normal Inspection, Normal Oropharynx Head: Atraumatic. No: Facial Swelling Neck: Supple, Full Range of Motion Respiratory/Chest: No Respiratory Distress, Lungs Clear, Normal Breath Sounds Cardiovascular: Regular Rate, Rhythm GI/Abdominal: Soft, Non-Tender Back Exam: No: CVA Tenderness (L), CVA Tenderness (R) Neurological: Alert, Oriented, No Motor/Sensory Deficits Skin Exam: Warm, Dry, Normal Color EKG INTERPRETATION EKG Date: 10/27/17 Rhythm: NSR [place]: Normal P-Wave: Present QRS: Normal ST-T: Normal Course - Vital Signs Last Recorded V/S: Last Vital Signs Temp 97.4 F 10/27/17 10:02 Pulse 68 10/27/17 10:56 Resp 16 10/27/17 10:02 BP 143/62 H 10/27/17 12:59 Pulse Ox 93 L 10/27/17 10:02 - Orders/Labs/Meds Orders: Active Orders 24 hr Category Date Time Status EKG 12 Lead [EKG Documentation Completion] [] STAT Care 10/27/17 10:37 Active Peripheral IV Care [RC] . DIRECTED Care 10/27/17 10:38 Active Sodium Chloride 0.9% [Saline Flush] Med 10/27/17 10:37 Active 10 ml FLUSH ASDIRECTED PRN Peripheral IV Insertion Adult [OM.PC] Stat Oth 10/27/17 10:37 Ordered Medication Orders Sodium Chloride (Saline Flush) 10 ml FLUSH ASDIRECTED PRN PRN Reason: Keep Vein Open Last Admin: 10/27/17 10:53 Dose: 10 ml Labs: Laboratory Tests 10/27/17 10/27/17 Range/Units 11:10 11:10 WBC 5.04 (3.98-10.04) K/mm3 RBC 5.17 (3.98-5.22) M/mm3 Hgb 15.5 (11.2-15.7) gm/L Hct 46.3 H (34.1-44.9) % MCV 89.6 (79.4-94.8) fl MCH 30.0 (25.6-32.2) pg MCHC 33.5 (32.2-35.5) g/dl RDW Std Deviation 45.8 (36.4-46.3) fL Plt Count 191 (182-369) K/mm3 MPV 11.0 (9.4-12.3) fl Neut % (Auto) 52.0 (34.0-71.1) % Lymph % (Auto) 37.3 (19.3-51.7) % [place] % (Auto) 7.5 (4.7-12.5) % Eos % (Auto) 2.6 (0.7-5.8) Baso % (Auto) 0.6 (0.1-1.2) % Neut # (Auto) 2.62 (1.56-6.13) K/mm3 Lymph # (Auto) 1.88 (1.18-3.74) K/mm3 [place] # (Auto) 0.38 H (0.24-0.36) K/mm3 Eos # (Auto) 0.13 (0.04-0.36) K/mm3 Baso # (Auto) 0.03 (0.01-0.08) K/mm3 Sodium 142 (136-145) mEq/L Potassium 3.4 L (3.5-5.1) mEq/L Chloride 106 (98-107) mEq/L Carbon Dioxide 30 (21-32) mEq/L Anion Gap 9.4 (5-15) BUN 15 (7-18) mg/dL Creatinine 0.7 (0.55-1.02) mg/dL Est Cr Clr Drug Dosing 51.54 mL/min Estimated GFR (MDRD) > 60 (>60) mL/min BUN/Creatinine Ratio 21.4 H (14-18) Glucose 112 (83-115) mg/dL Calcium 9.5 (8.5-10.1) mg/dL Total Bilirubin 0.4 (0.2-1.0) mg/dL AST 17 (15-37) U/L ALT 18 (14-59) U/L Alkaline Phosphatase 129 H (46-116) U/L Troponin I < 0.017 (0.00-0.056) ng/mL Total Protein 6.9 (6.4-8.2) g/dl Albumin 3.6 (3.4-5.0) g/dl Globulin 3.3 gm/dL Albumin/Globulin Ratio 1.1 (1-2) Meds: Medications Generic Name Dose Route Start Last Admin Trade Name Freq PRN Reason Stop Dose Admin Sodium Chloride 10 ml 10/27/17 10:37 10/27/17 10:53 Saline Flush FLUSH 10 ml ASDIRECTED PRN Administration Keep Vein Open Discontinued Medications Generic Name Dose Route Start Last Admin Trade Name Freq PRN Reason Stop Dose Admin Acetaminophen 975 mg 10/27/17 10:37 10/27/17 10:56 Tylenol PO 10/27/17 10:38 975 mg NOW ONE Administration Clonidine HCl 0.1 mg 10/27/17 11:57 10/27/17 12:08 Catapres PO 10/27/17 11:58 0.1 mg ONETIME ONE Administration Metoprolol Tartrate 50 mg 10/27/17 10:37 10/27/17 10:56 Lopressor PO 10/27/17 10:38 50 mg ONETIME ONE Administration - Re-Assessments/Exams Free Text/Narrative Re-Assessment/Exam: 10/27/17 13:03 Blood pressure did come down slowly after 50 mg metoprolol by mouth, clonidine 0.1 mg by mouth. His were all good. CT did not show any acute changes. Discharge instructions as documented. Departure - Departure Time of Disposition: 12:57 Disposition: Home, Self-Care 01 Condition: Fair Clinical Impression: Headache Qualifiers: Headache type: unspecified Headache chronicity pattern: acute headache Hypertension Qualifiers: Hypertension type: essential hypertension Qualified Code(s): I10 - Essential ( primary) hypertension Prescriptions: Diltiazem HCl [Diltiazem 24Hr Cd] 120 mg PO DAILY #30 cap.er.24h Referrals: PCP,None [Primary Care Provider] - Forms: ED Department Discharge Additional Instructions: Continue current medications as prescribed, start diltiazem 120 mg daily. Try avoid salty food is best you can. We'll put the regular medical provider in about 7-10 days for recheck. All for appointment. Bring a log of your home blood pressure readings for that clinic visit. Return to ED as needed if symptoms worsening in any way. - My Orders Last 24 Hours: My Active Orders 10/27/17 10:37 EKG 12 Lead [EKG Documentation Completion] [RC] STAT Sodium Chloride 0.9% [Saline Flush] 10 ml FLUSH ASDIRECTED PRN Peripheral IV Insertion Adult [OM.PC] Stat 10/27/17 10:38 Peripheral IV Care [RC] . DIRECTED - Assessment/Plan Last 24 Hours: My Active Orders 10/27/17 10:37 EKG 12 Lead [EKG Documentation Completion] [RC] STAT Sodium Chloride 0.9% [Saline Flush] 10 ml FLUSH ASDIRECTED PRN Peripheral IV Insertion Adult [OM.PC] Stat 10/27/17 10:38 Peripheral IV Care [RC] . DIRECTED
[2017-10-27] MEDS ORDERED: cloNIDine 0.1 MG Tab PO ONE (11:57)
--- NOTE | 2017-10-27 12:19 | CT ---
Head CT Technique: Multiple axial sections through the brain were obtained. Intravenous contrast was not utilized. Comparison: Prior intracranial imaging of 03/31/17. Findings: Ventricles along with basal cisterns and sulci over the convexities are within normal limits for the patient's age. Mild diminished density is noted within portions of the periventricular white matter which are compatible with small vessel ischemic demyelination change. Findings are similar to prior exam. No other abnormal parenchymal densities are seen. No evidence of intracranial hemorrhage. No midline shift or mass effect is seen. Bone window settings were reviewed which show mild atherosclerotic calcification within the vertebral vessels and carotid siphon. Visualized sinuses are clear. No acute calvarial abnormality is seen. Impression: 1. Mild senescent changes as noted above. 2. No acute intracranial abnormality is identified. No significant change is seen from prior head CT exam. Diagnostic code #2
== END 2017-10-27 13:25 | disposition home or self-care (01) ==
LOC: JD.ED 09:56
DX: R51 Headache (principal); I10 Essential (primary) hypertension; Z91.040 Latex allergy status; Z88.8 Allergy status to other drugs, medicaments and biological substances; Z79.82 Long term (current) use of aspirin; Z79.899 Other long term (current) drug therapy; Z87.891 Personal history of nicotine dependence
CPT/HCPCS: 36415; 70450; 80053; 84484; 85025; 93005; 99284; A9270; J7050; 93010

== ENCOUNTER 2017-10-30 07:08 | Emergency (ER) | payer MEDICARE, BC ==
--- NOTE | 2017-10-30 08:26 | EDM.PDOC ---
ED HPI GENERAL MEDICAL PROBLEM - General Chief Complaint: Abdominal Pain Stated Complaint: ABDOMINAL PAIN Time Seen by Provider: 10/30/17 07:21 Source of Information: Reports: Patient History Limitations: Reports: No Limitations - History of Present Illness INITIAL COMMENTS - FREE TEXT/NARRATIVE: The patient presents with hematuria and left lower abdominal pain. The patient regularly goes to the gym and swims. On Wednesday she had a headache and had to leave early and she did not shower. She came here to be evaluated for a headache and high blood pressure. Everything checked out okay. A new medicine was added for blood pressure. A couple nights ago she developed a sharp pain in her left lower abdomen. The pain has gotten better but now she has blood in her urine. There is gross blood on a pad she was wearing. She has urinary frequency but no dysuria. She has no fever or chills. She has a slight headache at times. She has no nausea or vomiting. She is worried she may have a UTI. Onset: Gradual Duration: Day(s): Location: Reports: Abdomen Quality: Reports: Ache Severity: Mild Improves with: Reports: None Worsens with: Reports: None Associated Symptoms: Reports: No Other Symptoms Treatments COMMUNICATION STUDIES PROFESSOR: Reports: Aspirin Other Treatments COMMUNICATION STUDIES PROFESSOR: 162mg Left Lower Abdomen Pain Score (Numeric/FACES): 3 - Related Data Allergies Allergy/AdvReac Type Severity Reaction Status Date / Time latex Allergy Swelling Verified 10/30/17 07:21 sertraline [From Zoloft] Allergy Rash Verified 10/30/17 07:21 Oxsxknl-[id number]-Vdx Reductase Allergy Leg Cramps Verified 10/30/17 07:21 Inhibitor Home Meds: Home Meds Aspirin 162 mg PO DAILY 03/28/17 [History] Calcium Carbonate [Calcium] 1 tab PO DAILY 03/28/17 [History] Levothyroxine 25 mcg PO DAILY 03/28/17 [History] Multivitamin [Multivitamins] 1 cap PO DAILY 03/28/17 [History] Potassium Chloride 20 meq PO DAILY 03/28/17 [History] Ubidecarenone [Coenzyme Q-10] 30 mg PO DAILY 03/28/17 [History] amLODIPine Besylate [Amlodipine Besylate] 10 mg PO DAILY 03/28/17 [History] Diltiazem HCl [Diltiazem 24Hr Cd] 120 mg PO DAILY #30 cap.er.24h 10/27/17 [Rx] Nitrofurantoin Monohyd/M-Cryst [Macrobid 100 mg Capsule] 100 mg PO BID #10 capsule 10/30/17 [Rx] Past Medical History HEENT History: Reports: Cataract Other HEENT History: wears eyeglasses. 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: Reports: 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, , Spontaneous Musculoskeletal History: Reports: Back Pain, Chronic, Gout, Other (See Below) Other Musculoskeletal History: gout to great toes bialteral Neurological History: Reports: CVA, Other (See Below) Other Neuro History: hemorrahgic stroke Endocrine/Metabolic History: Reports: Hypothyroidism Oncologic (Cancer) History: Reports: Basal Cell Carcinoma, Other (See Below) Other Oncologic History: from nose - Infectious Disease History Infectious Disease History: Reports: Chicken Pox, Measles, Mumps - Past Surgical History HEENT Surgical History: Reports: Cataract Surgery GI Surgical History: Reports: Cholecystectomy Female Surgical History: Reports: Hysterectomy Musculoskeletal Surgical History: Reports: Knee Replacement, Other (See Below) Other Musculoskeletal Surgeries/Procedures:: Right knee replacement and surgical plate in right thigh Social & Family History - Caffeine Use Caffeine Use: Reports: Coffee - Recreational Drug Use Recreational Drug Use: No - Living Situation & Occupation Living situation: Reports: Occupation: Retired ED ROS GENERAL - Review of Systems Review Of Systems: See Below Constitutional: Reports: No Symptoms HEENT: Reports: No Symptoms Respiratory: Reports: No Symptoms Cardiovascular: Reports: No Symptoms Endocrine: Reports: No Symptoms GI/Abdominal: Reports: Abdominal Pain. Denies: Diarrhea, Nausea, Vomiting : Reports: Frequency, Hematuria. Denies: Dysuria ED EXAM, GI/ABD - Physical Exam Exam: See Below Exam Limited By: No Limitations General Appearance: Alert, No Apparent Distress Ears: Normal External Exam Nose: Normal Inspection Head: Atraumatic, Normocephalic Neck: Normal Inspection Respiratory/Chest: No Respiratory Distress, Lungs Clear, Normal Breath Sounds Cardiovascular: Regular Rate, Rhythm, No Edema, No Murmur GI/Abdominal Exam: Soft, Non-Tender, No Organomegaly, No Mass Back Exam: Normal Inspection Extremities: Normal Inspection Course - Vital Signs Last Recorded V/S: Last Vital Signs Temp 97.9 F 10/30/17 07:17 Pulse 67 10/30/17 07:17 Resp 18 10/30/17 07:17 BP 166/64 H 10/30/17 07:17 Pulse Ox 93 L 10/30/17 07:17 - Orders/Labs/Meds Orders: Active Orders 24 hr Category Date Time Status CULTURE URINE [RM] Stat Lab 10/30/17 08:38 Ordered UA W/MICROSCOPIC [URIN] Stat Lab 10/30/17 07:42 Ordered Labs: Laboratory Tests 10/30/17 10/30/17 10/30/17 Range/Units 07:42 07:46 07:46 WBC 6.76 (3.98-10.04) K/mm3 RBC 5.19 (3.98-5.22) M/mm3 Hgb 15.4 (11.2-15.7) gm/L Hct 46.7 H (34.1-44.9) % MCV 90.0 (79.4-94.8) fl MCH 29.7 (25.6-32.2) pg MCHC 33.0 (32.2-35.5) g/dl RDW Std Deviation 46.3 (36.4-46.3) fL Plt Count 199 (182-369) K/mm3 MPV 11.0 (9.4-12.3) fl Neut % (Auto) 50.6 (34.0-71.1) % Lymph % (Auto) 36.8 (19.3-51.7) % [place] % (Auto) 9.2 (4.7-12.5) % Eos % (Auto) 2.8 (0.7-5.8) Baso % (Auto) 0.6 (0.1-1.2) % Neut # (Auto) 3.42 (1.56-6.13) K/mm3 Lymph # (Auto) 2.49 (1.18-3.74) K/mm3 [place] # (Auto) 0.62 H (0.24-0.36) K/mm3 Eos # (Auto) 0.19 (0.04-0.36) K/mm3 Baso # (Auto) 0.04 (0.01-0.08) K/mm3 Sodium 145 (136-145) mEq/L Potassium 3.9 (3.5-5.1) mEq/L Chloride 108 H (98-107) mEq/L Carbon Dioxide 29 (21-32) mEq/L Anion Gap 11.9 (5-15) BUN 25 H (7-18) mg/dL Creatinine 0.9 (0.55-1.02) mg/dL Est Cr Clr Drug Dosing 43.77 mL/min Estimated GFR (MDRD) > 60 (>60) mL/min BUN/Creatinine Ratio 27.8 H (14-18) Glucose 93 (83-115) mg/dL Hemoglobin A1c (4.50-6.20) % Calcium 9.6 (8.5-10.1) mg/dL Total Bilirubin 0.3 (0.2-1.0) mg/dL AST 15 (15-37) U/L ALT 20 (14-59) U/L Alkaline Phosphatase 124 H (46-116) U/L Total Protein 6.8 (6.4-8.2) g/dl Albumin 3.5 (3.4-5.0) g/dl Globulin 3.3 gm/dL Albumin/Globulin Ratio 1.1 (1-2) Lipase 137 (73-393) U/L Urine Color Red H (Yellow) Urine Appearance Turbid H (Clear) Urine pH 5.5 (5.0-8.0) Ur Specific [place] 1.025 (1.005-1.030) Urine Protein 3+ H (Negative) Urine Glucose (UA) Negative (Negative) Urine Ketones 1+ H (Negative) Urine Occult Blood 3+ H (Negative) Urine Nitrite Negative (Negative) Urine Bilirubin 3+ H (Negative) Urine Urobilinogen 1.0 (0.2-1.0) Ur Leukocyte Esterase 3+ H (Negative) Urine RBC Too numerous to cnt H (0-5) /hpf Urine WBC 75-100 H (0-5) /hpf Ur Epithelial Cells 0-5 (0-5) /hpf Urine Bacteria Few (FEW) /hpf Urine Mucus Not seen (FEW) /hpf 10/30/17 Range/Units 07:46 WBC (3.98-10.04) K/mm3 RBC (3.98-5.22) M/mm3 Hgb (11.2-15.7) gm/L Hct (34.1-44.9) % MCV (79.4-94.8) fl MCH (25.6-32.2) pg MCHC (32.2-35.5) g/dl RDW Std Deviation (36.4-46.3) fL Plt Count (182-369) K/mm3 MPV (9.4-12.3) fl Neut % (Auto) (34.0-71.1) % Lymph % (Auto) (19.3-51.7) % [place] % (Auto) (4.7-12.5) % Eos % (Auto) (0.7-5.8) Baso % (Auto) (0.1-1.2) % Neut # (Auto) (1.56-6.13) K/mm3 Lymph # (Auto) (1.18-3.74) K/mm3 [place] # (Auto) (0.24-0.36) K/mm3 Eos # (Auto) (0.04-0.36) K/mm3 Baso # (Auto) (0.01-0.08) K/mm3 Sodium (136-145) mEq/L Potassium (3.5-5.1) mEq/L Chloride (98-107) mEq/L Carbon Dioxide (21-32) mEq/L Anion Gap (5-15) BUN (7-18) mg/dL Creatinine (0.55-1.02) mg/dL Est Cr Clr Drug Dosing mL/min Estimated GFR (MDRD) (>60) mL/min BUN/Creatinine Ratio (14-18) Glucose (83-115) mg/dL Hemoglobin A1c 6.00 (4.50-6.20) % Calcium (8.5-10.1) mg/dL Total Bilirubin (0.2-1.0) mg/dL AST (15-37) U/L ALT (14-59) U/L Alkaline Phosphatase (46-116) U/L Total Protein (6.4-8.2) g/dl Albumin (3.4-5.0) g/dl Globulin gm/dL Albumin/Globulin Ratio (1-2) Lipase (73-393) U/L Urine Color (Yellow) Urine Appearance (Clear) Urine pH (5.0-8.0) Ur Specific [place] (1.005-1.030) Urine Protein (Negative) Urine Glucose (UA) (Negative) Urine Ketones (Negative) Urine Occult Blood (Negative) Urine Nitrite (Negative) Urine Bilirubin (Negative) Urine Urobilinogen (0.2-1.0) Ur Leukocyte Esterase (Negative) Urine RBC (0-5) /hpf Urine WBC (0-5) /hpf Ur Epithelial Cells (0-5) /hpf Urine Bacteria (FEW) /hpf Urine Mucus (FEW) /hpf - Re-Assessments/Exams Free Text/Narrative Re-Assessment/Exam: 10/30/17 08:27 I ordered a UA and labs. 10/30/17 09:04 Her CBC and CMP look good. Her lipase is normal. Her UA shows a UTI. I have ordered a urine culture. I will get her on macrobid. She had some questions about her breasts. She said she has had discharge from both nipples months ago and she felt lumps in her breast to each axilla. She said in her records it mentioned something about antibiotics for this. She does not remember getting any antibiotics. She got a letter that something was found on her mammogram and Linda Holloway recommended going to [place]. The patient could not go. She has transportation issues. She got about 5 letters saying she needed to be seen again for further testing. Linda Holloway has moved and the patient will be seeing Dr Holloway this next Wednesday for the hypertension and I told her to talk about her breast issues. I did an exam and I could feel some small nodules to each upper breast to the axilla. I do not think this is from an infection and she needs to see Dr Holloway for further work up. Departure - Departure Time of Disposition: 09:15 Disposition: Home, Self-Care 01 Condition: Good Clinical Impression: Breast nodule UTI (urinary tract infection) Qualifiers: Urinary tract infection type: acute cystitis Hematuria presence: with hematuria Qualified Code(s): N30.01 - Acute cystitis with hematuria - Discharge Information *PRESCRIPTION DRUG MONITORING PROGRAM REVIEWED*: Not Applicable *COPY OF PRESCRIPTION DRUG MONITORING REPORT IN PATIENT BRE: Not Applicable Prescriptions: Nitrofurantoin Monohyd/M-Cryst [Macrobid 100 mg Capsule] 100 mg PO BID #10 capsule Referrals: Janie Holloway MD [Primary Care Provider] - 1 Week Forms: ED Department Discharge Additional Instructions: Take macrobid 2 times per day for 5 days. Drink plenty of fluids. Take your medication as prescribed. Follow up with Dr Holloway next Wednesday. Discuss your high blood pressure and also discuss the findings from the mammogram and the lumps in your breast. Further work up is needed. Please return if you are worse. - My Orders Last 24 Hours: My Active Orders 10/30/17 07:42 UA W/MICROSCOPIC [URIN] Stat 10/30/17 08:38 CULTURE URINE [RM] Stat - Assessment/Plan Last 24 Hours: My Active Orders 10/30/17 07:42 UA W/MICROSCOPIC [URIN] Stat 10/30/17 08:38 CULTURE URINE [RM] Stat
== END 2017-10-30 09:35 | disposition home or self-care (01) ==
LOC: JD.ED 07:08
DX: N30.01 Acute cystitis with hematuria (principal); N63.20 Unspecified lump in the left breast, unspecified quadrant; N63.10 Unspecified lump in the right breast, unspecified quadrant; I10 Essential (primary) hypertension; Z91.040 Latex allergy status; Z88.8 Allergy status to other drugs, medicaments and biological substances; Z79.82 Long term (current) use of aspirin; Z79.899 Other long term (current) drug therapy
CPT/HCPCS: 36415; 80053; 81001; 83036; 83690; 85025; 87086; 87088; 87186; 99283; 99284

== ENCOUNTER 2018-11-02 22:58 | Emergency (ER) | payer MEDICARE, BC ==
[2018-11-02] MEDS ORDERED: Lidocaine 1% 10 ML MDV ONE (23:24)
[2018-11-02] MEDS ORDERED: Lidocaine 1% 10 ML MDV INJECT ONE (23:30)
--- NOTE | 2018-11-02 23:34 | EDM.PDOC ---
ED HPI GENERAL MEDICAL PROBLEM - General Chief Complaint: Laceration Stated Complaint: CUT POINTER FINGER ON RIGHT HAND Time Seen by Provider: 11/02/18 23:34 - History of Present Illness INITIAL COMMENTS - FREE TEXT/NARRATIVE: 78-year-old female presents emergency room with an injury to her right index finger. the patient was cleaning out a candle mushroom soup and caught her finger on the edge. No other associated injuries. She is unsure of her tetanus shot. This occurred shortly before arrival. Right Finger-Index Pain Score (Numeric/FACES): 4 - Related Data Allergies Allergy/AdvReac Type Severity Reaction Status Date / Time latex Allergy Swelling Verified 11/12/17 19:02 sertraline [From Zoloft] Allergy Rash Verified 11/12/17 19:02 Tuievdh-Ubm-Qig Reductase Allergy Leg Cramps Verified 11/12/17 19:02 Inhibitor Home Meds: Home Meds Aspirin 162 mg PO DAILY 03/28/17 [History] Calcium Carbonate [Calcium] 1 tab PO DAILY 03/28/17 [History] Levothyroxine 25 mcg PO DAILY 03/28/17 [History] Multivitamin [Multivitamins] 1 cap PO DAILY 03/28/17 [History] Potassium Chloride 20 meq PO DAILY 03/28/17 [History] Ubidecarenone [Coenzyme Q-10] 30 mg PO DAILY 03/28/17 [History] amLODIPine Besylate [Amlodipine Besylate] 10 mg PO DAILY 03/28/17 [History] dilTIAZem HCl [Diltiazem 24Hr Cd] 120 mg PO DAILY #30 cap.er.24h 10/27/17 [Rx] Ciprofloxacin HCl [Cipro] 500 mg PO BID #20 tablet 11/12/17 [Rx] cloNIDine [Catapres] 0.1 mg PO DAILY #7 tab 11/12/17 [Rx] Past Medical History HEENT History: Reports: Cataract Other HEENT History: wears eyeglasses. 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 toes bialteral Neurological History: Reports: CVA, Other (See Below) Other Neuro History: hemorrahgic stroke Endocrine/Metabolic History: Reports: Hypothyroidism Oncologic (Cancer) History: Reports: Basal Cell Carcinoma, Other (See Below) Other Oncologic History: from nose - Infectious Disease History Infectious Disease History: Reports: Chicken Pox, Measles, Mumps - Past Surgical History HEENT Surgical History: Reports: Cataract Surgery GI Surgical History: Reports: Cholecystectomy Female Surgical History: Reports: Hysterectomy Musculoskeletal Surgical History: Reports: Knee Replacement, Other (See Below) Other Musculoskeletal Surgeries/Procedures:: Right knee replacement and surgical plate in right thigh Social & Family History - Family History Family Medical History: Noncontributory - Tobacco Use Smoking Status *Q: Unknown Ever Smoked - Caffeine Use Caffeine Use: Reports: Coffee - Living Situation & Occupation Living situation: Reports: Occupation: Retired ED ROS GENERAL - Review of Systems Review Of Systems: See Below Constitutional: Reports: No Symptoms Respiratory: Reports: No Symptoms Cardiovascular: Reports: No Symptoms GI/Abdominal: Reports: No Symptoms ED EXAM, SKIN/RASH Exam: See Below Exam Limited By: No Limitations General Appearance: Alert, No Apparent Distress Respiratory/Chest: No Respiratory Distress, Lungs Clear, Normal Breath Sounds, No Accessory Muscle Use, Chest Non-Tender Cardiovascular: Normal Peripheral Pulses, Regular Rate, Rhythm, No Edema, No Gallop, No JVD, No Murmur, No Rub Extremities: Other (Diminution right hand shows a index finger with a palmar laceration this is transverse across the midportion of the middle phalanx. Neurovascular status is spared. Tendon function is entirely within normal limits.) ED SKIN PROCEDURES - Laceration/Wound Repair Right Digit - 2nd (Index) Appearance: Superficial Distal NVT: Neuro & Vascular Intact, No Tendon Injury Anesthetic Type: Digital Local Anesthesia - Lidocaine (Xylocaine): 1% Plain Local Anesthetic Volume: 3cc Skin Prep: Saline Exploration/Debridement/Repair: Wound Explored, In a Bloodless Field, Explored to Base, No Foreign Material Found Closed with: Sutures Lac/Wound length In cm: 2.5 Suture Size: 5-0 # of Sutures: 5 Suture Type: Mattress Sterile Dressing Applied: Nurse Tetanus Status Addressed: Yes (His was updated) Complications: No Progress/Comments: The wound was dressed and then a aluminum foam digit splint in a slightly flexed position was applied Course - Vital Signs Last Recorded V/S: Last Vital Signs Temp 36.9 C 11/02/18 23:18 Pulse 88 11/02/18 23:18 Resp 18 11/02/18 23:18 BP 156/88 H 11/02/18 23:18 Pulse Ox 94 L 11/02/18 23:18 - Orders/Labs/Meds Orders: Active Orders 24 hr Category Date Time Status Vaccines to be Administered [RC] PER UNIT ROUTINE Care 11/03/18 00:18 Ordered Meds: Medications Discontinued Medications Generic Name Dose Route Start Last Admin Trade Name Nancy PRN Reason Stop Dose Admin Diphtheria/Tetanus/Acell Pertussis 0.5 ml 11/03/18 00:18 Adacel IM 11/03/18 00:19 .ONCE ONE Lidocaine HCl Confirm 11/02/18 23:24 Xylocaine 1% Administered 11/02/18 23:25 Dose 10 ml .ROUTE .STK-MED ONE Lidocaine HCl 10 ml 11/02/18 23:30 Xylocaine 1% INJECT 11/02/18 23:31 ONETIME ONE Departure - Departure Time of Disposition: 00:29 Disposition: Home, Self-Care 01 Clinical Impression: Laceration of right index finger - Discharge Information Instructions: Laceration Care, Adult Referrals: PCP,None [Primary Care Provider] - Forms: ED Department Discharge Additional Instructions: Return to the emergency room with any questions problems worsening symptoms. Wear the splint for the next 4-5 days and then just keep lightly covered keep it absolutely clean and dry for the next 48 hours if any flow water gently run over the area and then gently dab dry. Follow-up in the Hospital clinic in 10 days for suture removal. [phone] - My Orders Last 24 Hours: My Active Orders 11/03/18 00:18 Vaccines to be Administered [RC] PER UNIT ROUTINE - Assessment/Plan Last 24 Hours: My Active Orders 11/03/18 00:18 Vaccines to be Administered [RC] PER UNIT ROUTINE
[2018-11-03] MEDS ORDERED: Diphtheria,Pertussis(Acell),Tetanus Vaccine 0.5 ML SDV IM ONE (00:18)
== END 2018-11-03 00:45 | disposition home or self-care (01) ==
LOC: JD.ED 22:58
DX: S61.210A Laceration without foreign body of right index finger without damage to nail, initial encounter (principal); E78.00 Pure hypercholesterolemia, unspecified; I10 Essential (primary) hypertension; J44.9 Chronic obstructive pulmonary disease, unspecified; E03.9 Hypothyroidism, unspecified; Z23 Encounter for immunization; Z91.040 Latex allergy status; Z88.8 Allergy status to other drugs, medicaments and biological substances; Z79.82 Long term (current) use of aspirin; Z79.899 Other long term (current) drug therapy; Z85.828 Personal history of other malignant neoplasm of skin; W26.8XXA Contact with other sharp object(s), not elsewhere classified, initial encounter
CPT/HCPCS: 12001; 90471; 90715; 99283; J2001

== ENCOUNTER 2019-05-27 14:17 | Emergency (ER) | payer MEDICARE, BC ==
--- NOTE | 2019-05-27 14:38 | EDM.PDOC ---
ED HPI GENERAL MEDICAL PROBLEM - General Chief Complaint: Gastrointestinal Problem Stated Complaint: LOW BLOOD PRESSURE,FEVER AND VOMITING Time Seen by Provider: 05/27/19 14:33 Source of Information: Reports: Patient History Limitations: Reports: No Limitations - History of Present Illness INITIAL COMMENTS - FREE TEXT/NARRATIVE: 78-year-old female attends the ED feeling faint when she is standing due to blood pressure recorded at home being as low as 78 and 74 systolic. Upon arrival here is 120/74. She stills states that she was ill 13 days ago with vomiting for most of the day and 1 or 2 small diarrhea stools and has not seemed to be able to recover from that. She still burps and belches after eating with a lot of acid reflux. He is on high-dose blood pressure medications including clonidine 0.1 mg daily diltiazem 240 mg once daily and Norvasc 10 mg daily. Ports she may have lost a pound or 2 but not greater than 10 pounds. She often feels lightheaded and dizzy with standing particular in the mornings and has to sit down. She denies any falls at home. Onset: Gradual Onset Date: 05/14/19 Duration: Day(s):, Constant, Getting Worse Location: Reports: Generalized (Generalized signs of illness. Low blood pressure with standing at times with near syncopal events.) Quality: Reports: Throbbing (Syncopal events.), Other Improves with: Reports: None Worsens with: Reports: Other Context: Denies: Activity (Getting up from the seated or lying down position makes things worse), Exercise, Lifting, Sick Contact, Other Associated Symptoms: Reports: Loss of Appetite, Malaise, Nausea/Vomiting ( History of nausea and vomiting for), Weakness ( approximately 16 hours but this was 2 weeks ago.). Denies: No Other Symptoms, Confusion, Chest Pain, Cough, cough w sputum, Diaphoresis, Fever/Chills, Headaches, Rash, Seizure, Shortness of Breath, Syncope Treatments GREEN BELT: Reports: Other (see below) (Takes only the medication she is prescribed.) - Related Data Allergies Allergy/AdvReac Type Severity Reaction Status Date / Time latex Allergy Swelling Verified 05/27/19 14:36 sertraline [From Zoloft] Allergy Rash Verified 05/27/19 14:36 [id number] Reductase Allergy Leg Cramps Verified 05/27/19 14:36 Inhibitor Home Meds: Home Meds Aspirin 162 mg PO DAILY 03/28/17 [History] Calcium Carbonate [Calcium] 1 tab PO DAILY 03/28/17 [History] Levothyroxine 25 mcg PO DAILY 03/28/17 [History] Multivitamin [Multivitamins] 1 cap PO DAILY 03/28/17 [History] Potassium Chloride 20 meq PO DAILY 03/28/17 [History] Ubidecarenone [Coenzyme Q-10] 30 mg PO DAILY 03/28/17 [History] amLODIPine Besylate [Amlodipine Besylate] 10 mg PO DAILY 03/28/17 [History] dilTIAZem HCl [Diltiazem 24Hr Cd] 120 mg PO DAILY #30 cap.er.24h 10/27/17 [Rx] cloNIDine [Catapres] 0.1 mg PO DAILY #7 tab 11/12/17 [Rx] Levothyroxine [Synthroid] 50 mcg PO ACBREAKFAST #90 tab 05/27/19 [Rx] Past Medical History HEENT History: Reports: Cataract Other HEENT History: wears eyeglasses. 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[employer]PER History: Reports: 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, , Spontaneous Musculoskeletal History: Reports: Back Pain, Chronic, Gout, Other (See Below) Other Musculoskeletal History: gout to great toes bialteral Neurological History: Reports: CVA, Other (See Below) Other Neuro History: hemorrahgic stroke Endocrine/Metabolic History: Reports: Hypothyroidism Oncologic (Cancer) History: Reports: Basal Cell Carcinoma, Other (See Below) Other Oncologic History: from nose - Infectious Disease History Infectious Disease History: Reports: Chicken Pox, Measles, Mumps - Past Surgical History HEENT Surgical History: Reports: Cataract Surgery GI Surgical History: Reports: Cholecystectomy Female Surgical History: Reports: Hysterectomy Musculoskeletal Surgical History: Reports: Knee Replacement, Other (See Below) Other Musculoskeletal Surgeries/Procedures:: Right knee replacement and surgical plate in right thigh Social & Family History - Family History Family Medical History: Noncontributory - Caffeine Use Caffeine Use: Reports: Coffee - Living Situation & Occupation Living situation: Reports: Occupation: Retired ED ROS GENERAL - Review of Systems Review Of Systems: See Below Constitutional: Reports: Malaise, Weakness, Fatigue, Decreased Appetite, Weight Loss, Other (Be a pound or 2.). Denies: Fever, Chills HEENT: Reports: Glasses Respiratory: Denies: Shortness of Breath, Wheezing, Pleuritic Chest Pain, Cough , Sputum, Hemoptysis Cardiovascular: Reports: Blood Pressure Problem, Dyspnea on Exertion, Lightheadedness. Denies: Chest Pain, Claudication (Seems to be running too low lately.), Edema (Near syncope feelings.), Orthopnea, Palpitations (Times) Endocrine: Reports: Fatigue GI/Abdominal: Reports: Nausea (Mild), Other (A lot more gastroesophageal reflux disease since she was sick with nausea vomiting 14 days ago.) : Reports: Frequency, Incontinence (Both urge and stress components) Musculoskeletal: Reports: Back Pain, Joint Pain (He sips neck at times) Skin: Reports: No Symptoms Neurological: Reports: Dizziness (Near syncopal events at times late the last 2 weeks) Psychiatric: Reports: Anxiety Hematologic/Lymphatic: Reports: No Symptoms Immunologic: Reports: No Symptoms ED EXAM, GI/ABD - Physical Exam Exam: See Below Exam Limited By: No Limitations General Appearance: Alert, WD/WN, Anxious, Other (Temperature is 36.3 heart rate was 80 in sinus respiratory was 16 BP was 04/03/1993 pulse ox 95% on room air) Eyes: Bilateral: Normal Appearance (No scleral icterus or blepharal pallor) Throat/Mouth: Normal Inspection, Normal Lips, Normal Oropharynx Head: Atraumatic, Normocephalic Neck: Normal Inspection, Supple, Non-Tender, Full Range of Motion. No: Lymphadenopathy (L), Lymphadenopathy (R) Respiratory/Chest: No Respiratory Distress, Lungs Clear, Normal Breath Sounds, No Accessory Muscle Use, Chest Non-Tender Cardiovascular: Normal Peripheral Pulses, Regular Rate, Rhythm, No Edema, No Gallop, No Murmur, No Rub GI/Abdominal Exam: Normal Bowel Sounds, Soft, Non-Tender, No Organomegaly, No Abnormal Bruit Back Exam: Normal Inspection, Full Range of Motion. No: CVA Tenderness (L), CVA Tenderness (R) Extremities: Normal Inspection, Normal Range of Motion, Non-Tender Neurological: Alert, Oriented, CN II-XII Intact, Normal Cognition Psychiatric: Normal Affect, Normal Mood Skin Exam: Warm, Dry, Intact, Normal Color, No Rash Course - Vital Signs Last Recorded V/S: Last Vital Signs Temp 36.4 C 05/27/19 18:04 Pulse 86 05/27/19 18:04 Resp 15 05/27/19 18:04 BP 153/80 H 05/27/19 18:04 Pulse Ox 93 L 05/27/19 18:04 Orthostatic Blood Pressure [ 134/73 Standing] Orthostatic Blood Pressure [ 123/75 Sitting] Orthostatic Blood Pressure [ 130/70 Supine] - Orders/Labs/Meds Orders: Active Orders 24 hr Category Date Time Status Orthostatic Vital Signs [RC] ASDIRECTED Care 05/27/19 14:33 Active Labs: Laboratory Tests 05/27/19 05/27/19 05/27/19 Range/Units 15:11 15:11 16:11 WBC 5.98 (3.98-10.04) K/mm3 RBC 4.76 (3.98-5.22) M/mm3 Hgb 13.9 (11.2-15.7) gm/dl Hct 43.0 (34.1-44.9) % MCV 90.3 (79.4-94.8) fl MCH 29.2 (25.6-32.2) pg MCHC 32.3 (32.2-35.5) g/dl RDW Std Deviation 46.4 H (36.4-46.3) fL Plt Count 243 (182-369) K/mm3 MPV 10.5 (9.4-12.3) fl Neut % (Auto) 42.3 (34.0-71.1) % Lymph % (Auto) 45.5 (19.3-51.7) % [place] % (Auto) 7.5 (4.7-12.5) % Eos % (Auto) 3.8 (0.7-5.8) Baso % (Auto) 0.7 (0.1-1.2) % Neut # (Auto) 2.53 (1.56-6.13) K/mm3 Lymph # (Auto) 2.72 (1.18-3.74) K/mm3 [place] # (Auto) 0.45 H (0.24-0.36) K/mm3 Eos # (Auto) 0.23 (0.04-0.36) K/mm3 Baso # (Auto) 0.04 (0.01-0.08) K/mm3 Sodium 143 (136-145) mEq/L Potassium 4.0 (3.5-5.1) mEq/L Chloride 105 (98-107) mEq/L Carbon Dioxide 29 (21-32) mEq/L Anion Gap 13.0 (5-15) BUN 23 H (7-18) mg/dL Creatinine 0.8 (0.55-1.02) mg/dL Est Cr Clr Drug Dosing TNP Estimated GFR (MDRD) > 60 (>60) mL/min BUN/Creatinine Ratio 28.8 H (14-18) Glucose 109 (83-115) mg/dL Calcium 9.5 (8.5-10.1) mg/dL Total Bilirubin 0.3 (0.2-1.0) mg/dL AST 14 L (15-37) U/L ALT 22 (14-59) U/L Alkaline Phosphatase 86 (46-116) U/L C-Reactive Protein <0.2 (<1.0) mg/dL Total Protein 6.5 (6.4-8.2) g/dl Albumin 3.5 (3.4-5.0) g/dl Globulin 3.0 gm/dL Albumin/Globulin Ratio 1.2 (1-2) TSH 3rd Generation 4.132 H (0.358-3.74) uIU/mL Urine Color Yellow (Yellow) Urine Appearance Clear (Clear) Urine pH 7.0 (5.0-8.0) Ur Specific [place] 1.020 (1.005-1.030) Urine Protein Negative (Negative) Urine Glucose (UA) Negative (Negative) Urine Ketones Negative (Negative) Urine Occult Blood Negative (Negative) Urine Nitrite Negative (Negative) Urine Bilirubin Negative (Negative) Urine Urobilinogen 0.2 (0.2-1.0) Ur Leukocyte Esterase Negative (Negative) Urine RBC 0-5 (0-5) /hpf Urine WBC 0-5 (0-5) /hpf Ur Squamous Epith Cells 0-5 (0-5) /hpf Urine Bacteria Occasional (FEW) /hpf Urine Mucus Not seen (FEW) /hpf Meds: Medications Discontinued Medications Generic Name Dose Route Start Last Admin Trade Name Freq PRN Reason Stop Dose Admin Dextrose/Lactated Ringer's 1,000 mls @ 500 mls/hr 05/27/19 15:00 05/27/19 15: 16 Dextrose 5%-Lactated Ringers IV 500 mls/hr ASDIRECTED FAHEEM Administration - Radiology Interpretation Free Text/Narrative:: 78-year-old female presents to the ED laying like she is experiencing near syncope at times and measuring her blood pressure at home and getting low numbers such as 78 and 74's systolics. Has near syncope events but has not fallen at home. Of note she is on plenty of blood pressure medication reports no recent dramatic weight loss. Illness about weeks ago with a full day of nausea and vomiting and some's mild diarrhea and she states she just has not seemed to have been able to recover. She indicates that she is not probably eating as well as she is getting a lot more heartburn and indigestion. Pasha will be orthostatic BPs. IV D5 Ringer's lactate at 500 mils an hour. Routine labs to be performed and a urinalysis. - Re-Assessments/Exams Free Text/Narrative Re-Assessment/Exam: 05/27/19 16:53 White count is 5.98 with a count of 42% and a right shift of 45.5 % lymphocytes. Hemoglobin is 13.9 with a hematocrit of 43.0. Platelet count 243,000. Sodium is 143 with a potassium of 4.0 chloride 105 with a bicarb of 29. Anion gap is 13.0 BUN is 23. Creatinine was 0.8 GFR remains greater than 60. Glucose 109 with a calcium of 9.5. Liver function is normal C-reactive protein less than 0.2. Total protein is 6.5 with an albumin fraction of 3.5. TSH is mildly elevated at 4.132 indicating mild subclinical hypothyroidism. Urinalysis is completely normal as the findings with the patient. 05/27/19 17:50: Is difficult to sort out exactly what medication she is taking as it appears she was prescribed clonidine 0.1 mg once daily for 1 week in the past but does not take this on a regular basis. My impression is that she is developing hypotension from morning meds and then improves as the day goes on. All of her blood pressures done in the emergency room were all in the 122/74 range with no signs of hypotension. Says that sometimes she takes it in the morning because she is dizzy lightheaded and her bones hurt and she states she can only get 74 systolic at home. This suggests to me that she is taking too much antihypertensive medication at the same time of the day. From what I can gather she is on 10 mg of amlodipine and 240 mg of Cardizem extended release daily. We discussed this and the decision was made to split them up or only take a half a tablet of the amlodipine at bedtime and the 240 mg Cardizem in the morning. The only other finding was subclinical hypothyroidism and we need to double her levothyroxine from 25 mcg/day to 50 mcg/day and I did write a prescription in this regard. Lysed repeat TSH in 8 weeks time. See how she does and she will follow-up with her prior primary care physician if any other further problems occur. Departure - Departure Time of Disposition: 17:13 Disposition: Home, Self-Care 01 Condition: Fair Clinical Impression: Hypothyroidism (acquired), Labile essential hypertension - Discharge Information *PRESCRIPTION DRUG MONITORING PROGRAM REVIEWED*: Not Applicable *COPY OF PRESCRIPTION DRUG MONITORING REPORT IN PATIENT BRE: Not Applicable Prescriptions: Levothyroxine [Synthroid] 50 mcg PO ACBREAKFAST #90 tab Instructions: Hypothyroidism, Hypertension, Adult, [id number] Referrals: PCP,None [Primary Care Provider] - Forms: ED Department Discharge Additional Instructions: evaluation the emergency room today in regards to persistent low blood pressure in the mornings which seems to improve in the afternoons would suggest to me that too much blood pressure medication is being consumed in the morning I would suggest that you discontinue your Norvasc or amlodipine tablet completely since you have already been wiggling it down substantially. The only blood pressure medication you should be on at this time is see her Cardizem to 40 mg once daily. Other thing I found on your lab test was that you are not getting quite enough thyroid replacement hormone and suggest increasing her thyroid medication to 2 tablets or 50 mcg daily. Write a prescription for these tablets and you need your thyroid function checked in 8 weeks time. Need to check your blood pressures in the mornings and in the evenings so that we can tell whether or not blood pressure is running too low in the mornings and may be further medication changes are required. Sepsis Event Note - Focused Exam Vital Signs: Vital Signs Temp Pulse Resp BP Pulse Ox 05/27/19 18:04 36.4 C 86 15 153/80 H 93 L 05/27/19 14:33 36.3 C 80 16 127/94 H 95 Date Exam was Performed: 05/27/19 Time Exam was Performed: 18:10 - My Orders Last 24 Hours: My Active Orders 05/27/19 14:33 Orthostatic Vital Signs [RC] ASDIRECTED - Assessment/Plan Last 24 Hours: My Active Orders 05/27/19 14:33 Orthostatic Vital Signs [RC] ASDIRECTED
[2019-05-27] MEDS ORDERED: Dextrose 5%-Lactated Ringers 1,000 ML IV SCH (15:00)
== END 2019-05-27 18:03 | disposition home or self-care (01) ==
LOC: JD.ED 14:17
DX: E03.9 Hypothyroidism, unspecified (principal); I10 Essential (primary) hypertension
CPT/HCPCS: 36415; 80053; 81001; 84443; 85025; 86140; 96360; 96361; 99284; J7121

== ENCOUNTER 2020-02-08 06:10 | Emergency (ER) | payer MEDICARE, BC ==
--- NOTE | 2020-02-08 06:29 | EDM.PDOC ---
<Lamberto Villarreal - Last Filed: 02/08/20 06:48> ED HPI GENERAL MEDICAL PROBLEM - General Chief Complaint: Cardiovascular Problem Stated Complaint: HIGH BLOOD PRESSURE Time Seen by Provider: 02/08/20 06:29 - History of Present Illness INITIAL COMMENTS - FREE TEXT/NARRATIVE: 79-year-old female presents the emergency room with elevated blood pressure. Patient has been developing headaches because of her increased blood pressure over the last day. Over the last couple of weeks she has had her blood pressure medication adjusted. On the of last month she discontinued her diltiazem 120 mg daily amlodipine 10 mg daily and had her clonidine decreased from 0.2 twice daily to 0.1 twice daily this was done for for 1 week and then stopped. On the day that it was stopped the lisinopril was increased to 20 mg a day from 10 mg a day. According to her med list she is taking hydrochlorothiazide 25 mg a day as well, this has not been changed. She has had a headache with this elevated blood pressure, and she has had a history of getting headaches with high blood pressures. She has not had any chest pain chest pressure breathing difficulties or shortness of breath. Patient does have a history of a stroke 10 to 12 years back. Headache Pain Score (Numeric/FACES): 7 - Related Data Allergies Allergy/AdvReac Type Severity Reaction Status Date / Time azithromycin [From Zithromax] Allergy Anaphylactic Verified 02/08/20 06:57 Shock bupropion [From Zyban] Allergy Cannot Verified 02/08/20 07:08 Remember denosumab [From Prolia] Allergy Cannot Verified 02/08/20 07:03 Remember ezetimibe [From Zetia] Allergy Cannot Verified 02/08/20 07:07 Remember gabapentin Allergy Other Verified 02/08/20 06:59 latex Allergy Swelling Verified 02/08/20 06:28 oxaprozin Allergy Cannot Verified 02/08/20 07:02 Remember pineapple Allergy Cannot Verified 02/08/20 07:01 Remember rofecoxib [From Vioxx] Allergy Cannot Verified 02/08/20 07:07 Remember sertraline [From Zoloft] Allergy Rash Verified 02/08/20 06:28 simvastatin Allergy Cannot Verified 02/08/20 07:04 Remember Dbsainq-Wam-Agd Reductase Allergy Leg Cramps Verified 02/08/20 06:28 Inhibitor Sulfa (Sulfonamide Allergy Cannot Verified 02/08/20 07:06 Antibiotics) Remember topiramate [From Topamax] Allergy Cannot Verified 02/08/20 07:06 Remember Home Meds: Home Meds Aspirin 162 mg PO DAILY 03/28/17 [History] Calcium Carbonate [Calcium] 1 tab PO DAILY 03/28/17 [History] Levothyroxine 25 mcg PO DAILY 03/28/17 [History] Multivitamin [Multivitamins] 1 cap PO DAILY 03/28/17 [History] Potassium Chloride 20 meq PO TID 03/28/17 [History] Ubidecarenone [Coenzyme Q-10] 30 mg PO DAILY 03/28/17 [History] Levothyroxine [Synthroid] 50 mcg PO ACBREAKFAST #90 tab 05/27/19 [Rx] amLODIPine [Norvasc] 5 mg PO DAILY #30 tab 02/08/20 [Rx] Past Medical History HEENT History: Reports: Cataract Other HEENT History: wears eyeglasses. 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 LOADER History: Reports: 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, , Spontaneous Musculoskeletal History: Reports: Back Pain, Chronic, Gout, Other (See Below) Other Musculoskeletal History: gout to great toes bialteral Neurological History: Reports: CVA, Other (See Below) Other Neuro History: hemorrahgic stroke Endocrine/Metabolic History: Reports: Hypothyroidism Oncologic (Cancer) History: Reports: Basal Cell Carcinoma, Other (See Below) Other Oncologic History: from nose - Infectious Disease History Infectious Disease History: Reports: Chicken Pox, Measles, Mumps - Past Surgical History HEENT Surgical History: Reports: Cataract Surgery GI Surgical History: Reports: Cholecystectomy Female Surgical History: Reports: Hysterectomy Musculoskeletal Surgical History: Reports: Knee Replacement, Other (See Below) Other Musculoskeletal Surgeries/Procedures:: Right knee replacement and surgical plate in right thigh Social & Family History - Family History Family Medical History: No Pertinent Family History - Caffeine Use Caffeine Use: Reports: Coffee - Living Situation & Occupation Living situation: Reports: Occupation: Retired ED ROS GENERAL - Review of Systems Review Of Systems: See Below Constitutional: Reports: No Symptoms HEENT: Reports: No Symptoms Respiratory: Reports: No Symptoms Cardiovascular: Reports: No Symptoms Endocrine: Reports: No Symptoms GI/Abdominal: Reports: Other (At times she has some constipation and this causes a little bit of discomfort for her). Denies: No Symptoms : Reports: No Symptoms Musculoskeletal: Reports: No Symptoms Skin: Reports: No Symptoms Neurological: Reports: No Symptoms ED EXAM, GENERAL - Physical Exam Exam: See Below Exam Limited By: No Limitations General Appearance: Alert, No Apparent Distress, Other (Complains of a headache and states she gets headaches with her elevated blood pressure at the time of admission her blood pressure was 193/96) Head: Atraumatic, Normocephalic Neck: Normal Inspection, Supple, Non-Tender, Full Range of Motion Respiratory/Chest: No Respiratory Distress, Lungs Clear, Normal Breath Sounds Cardiovascular: Regular Rate, Rhythm, No Edema, No Murmur GI/Abdominal: Normal Bowel Sounds, Soft, Other (Minimal discomfort in the left upper quadrant otherwise normal abdominal exam normal bowel sounds no rigidity no rebound no guarding). No: Guarding, Rigid, Rebound Course - Re-Assessments/Exams Free Text/Narrative Re-Assessment/Exam: 02/08/20 07:09 Time patient's blood pressure is 194/85 pulse 72 at times her pulse has been in the 60s. With her headache I would like to lower blood pressure a little bit. Patient is already on an RASHAWN inhibitor and is still on her hydrochlorothiazide will give low-dose IV enalaprilat 0.625 mg. Would anticipate discharging her on amlodipine 5 mg daily as she was on 10 mg daily hopefully this will not affect her pulse however the patient seemed to tolerate it in the past in conjunction with diltiazem. Labs EKG head CT pending at this time is change of shift. Case discussed with Dr. Skelton who will assume care and implement disposition. Departure - Departure Disposition: Home, Self-Care 01 Clinical Impression: Hypertension Qualifiers: Hypertension type: essential hypertension Qualified Code(s): I10 - Essential (primary) hypertension Headache Qualifiers: Headache type: unspecified Headache chronicity pattern: acute headache Intractability: not intractable Qualified Code(s): R51.9 - Headache, unspecified Prescriptions: amLODIPine [Norvasc] 5 mg PO DAILY #30 tab Referrals: Vashti Bullard [employer] INSPECTOR AND REPAIRER [Primary Care Provider] - 1 Week Forms: ED Department Discharge Additional Instructions: Take the lisinopril and hydrochlorothiazide as prescribed. Take the amlodopine 5mg daily. Check if you have any more of the 10mg pills and cut them in half. If you do not get the prescription filled. Follow up with Vashti next week. Please return if you are worse. <Cody Skelton - Last Filed: 02/08/20 09:20> #1 Interpretation EKG Date: 02/08/20 Time: 07:13 Rhythm: NSR Rate (Beats/Min): 68 [place]: Normal P-Wave: Present QRS: Normal ST-T: Normal QT: Normal Course - Vital Signs Last Recorded V/S: Last Vital Signs Temp 97 F 02/08/20 06:19 Pulse 68 02/08/20 07:45 Resp 18 02/08/20 07:45 BP 183/79 H 02/08/20 07:45 Pulse Ox 93 L 02/08/20 07:45 - Orders/Labs/Meds Orders: Active Orders 24 hr Category Date Time Status EKG Documentation Completion [RC] STAT Care 02/08/20 06:47 Active Labs: Laboratory Tests 02/08/20 02/08/20 Range/Units 07:20 07:20 WBC 5.08 (3.98-10.04) K/mm3 RBC 5.28 H (3.98-5.22) M/mm3 Hgb 15.4 (11.2-15.7) gm/dl Hct 47.4 H (34.1-44.9) % MCV 89.8 (79.4-94.8) fl MCH 29.2 (25.6-32.2) pg MCHC 32.5 (32.2-35.5) g/dl RDW Std Deviation 46.3 (36.4-46.3) fL Plt Count 228 (182-369) K/mm3 MPV 10.4 (9.4-12.3) fl Neut % (Auto) 43.7 (34.0-71.1) % Lymph % (Auto) 44.1 (19.3-51.7) % [place] % (Auto) 7.9 (4.7-12.5) % Eos % (Auto) 3.3 (0.7-5.8) Baso % (Auto) 1.0 (0.1-1.2) % Neut # (Auto) 2.22 (1.56-6.13) K/mm3 Lymph # (Auto) 2.24 (1.18-3.74) K/mm3 [place] # (Auto) 0.40 H (0.24-0.36) K/mm3 Eos # (Auto) 0.17 (0.04-0.36) K/mm3 Baso # (Auto) 0.05 (0.01-0.08) K/mm3 Sodium 143 (136-145) mEq/L Potassium 3.7 (3.5-5.1) mEq/L Chloride 107 (98-107) mEq/L Carbon Dioxide 33 H (21-32) mEq/L Anion Gap 6.7 (5-15) BUN 21 H (7-18) mg/dL Creatinine 0.9 (0.55-1.02) mg/dL Est Cr Clr Drug Dosing 36.99 mL/min Estimated GFR (MDRD) > 60 (>60) mL/min BUN/Creatinine Ratio 23.3 H (14-18) Glucose 108 (83-115) mg/dL Calcium 10.3 H (8.5-10.1) mg/dL Total Bilirubin 0.4 (0.2-1.0) mg/dL AST 17 (15-37) U/L ALT 17 (14-59) U/L Alkaline Phosphatase 92 (46-116) U/L Troponin I < 0.017 (0.00-0.056) ng/mL Total Protein 7.0 (6.4-8.2) g/dl Albumin 3.7 (3.4-5.0) g/dl Globulin 3.3 gm/dL Albumin/Globulin Ratio 1.1 (1-2) Meds: Medications Discontinued Medications Generic Name Dose Route Start Last Admin Trade Name Freq PRN Reason Stop Dose Admin Amlodipine Besylate 5 mg 02/08/20 09:06 Norvasc PO 02/08/20 09:07 ONETIME ONE Enalaprilat 0.625 mg 02/08/20 06:58 02/08/20 07:22 Vasotec Iv IVPUSH 02/08/20 06:59 0.625 mg ONETIME ONE Administration Labetalol HCl 20 mg 02/08/20 08:03 02/08/20 08:08 Normodyne IVPUSH 02/08/20 08:04 20 mg ONETIME ONE Administration Protocol - Re-Assessments/Exams Free Text/Narrative Re-Assessment/Exam: 02/08/20 09:[address] Villarreal. Her EKG shows a NSR with no acute changes. Her CT shows mild senescent change with nothing acute being seen. No change is appreciated from prior study. Her CBC and CMP look good. Her troponin is negative. It appear she is on lisinopril 20mg 2 times per day and hydrochlorothiazide 25mg daily. I called Vashti Will her provider and she would like her started back on a low dose amlodipine 5mg. I will give her a dose here. Her BP is better at 154 systolic. She is feeling better. Departure - Departure Time of Disposition: 09:20 Condition: Good Sepsis Event Note (ED) - Focused Exam Vital Signs: Vital Signs Temp Pulse Resp BP BP Pulse Ox 02/08/20 07:45 68 18 183/79 H 93 L 02/08/20 07:22 207/94 H 02/08/20 06:19 97 F 82 22 H 193/96 H 95
[2020-02-08] MEDS ORDERED: Enalaprilat 1.25 MG/ML SDV IVPUSH ONE (06:58)
[2020-02-08] MEDS ORDERED: Labetalol 100 MG/20 ML MDV IVPUSH ONE (08:03)
--- NOTE | 2020-02-08 08:20 | CT ---
Head CT Technique: Multiple axial images were obtained without intravenous contrast. Reconstructed coronal and sagital images were also obtained. Comparison: Previous Head CT dated 10/27/17. Findings: Intracrainal: Ventricles along with basal cisterns and sulci over the convexities are within normal limits for the patient's age. Mild diminished density is noted within portions of the periventricular white matter which are compatible with small vessel ischemic demyelination change. Findings are similar to prior exam. No other abnormal parenchymal densities are seen. No evidence of intracranial hemorrhage. No midline shift or mass effect is seen. Osseous: Bone window settings were reviewed which show mild atherosclerotic calcification within the vertebral vessels and carotid siphon. Visualized sinuses are clear. No acute calvarial abnormality is seen. Impression: 1. Mild senescent change with nothing acute being seen. No change is appreciated from prior study. Diagnostic code #2
[2020-02-08] MEDS ORDERED: amLODIPine 5 MG Tab PO ONE (09:06)
== END 2020-02-08 09:35 | disposition home or self-care (01) ==
LOC: JD.ED 06:10
DX: I10 Essential (primary) hypertension (principal); J44.9 Chronic obstructive pulmonary disease, unspecified; M10.9 Gout, unspecified; Z88.1 Allergy status to other antibiotic agents; Z88.8 Allergy status to other drugs, medicaments and biological substances; Z91.040 Latex allergy status; Z91.018 Allergy to other foods; Z88.2 Allergy status to sulfonamides; Z79.82 Long term (current) use of aspirin; Z79.899 Other long term (current) drug therapy; Z86.73 Personal history of transient ischemic attack (TIA), and cerebral infarction without residual deficits
CPT/HCPCS: 36415; 70450; 80053; 84484; 85025; 93005; 96374; 96375; 99284; A9270; J3490; 93010

== ENCOUNTER 2020-06-01 00:25 | Emergency (ER) | payer MEDICARE, BC ==
[2020-06-01] MEDS ORDERED: Nystatin Susp 100,000 Unit/ML 5 ML UD Cup PO ONE (01:01)
[2020-06-01] MEDS ORDERED: Diphenhydramine/Lidocaine/MagAl/Simethicone 119 ML Bottle PO ONE (01:02)
[2020-06-01] MEDS ORDERED: Nystatin Susp 100,000 Unit/ML 5 ML Oral Syringe PO ONE (01:07)
--- NOTE | 2020-06-01 01:08 | EDM.PDOC ---
ED HPI GENERAL MEDICAL PROBLEM - General Chief Complaint: ENT Problem Stated Complaint: tooth infection Time Seen by Provider: 06/01/20 00:40 Source of Information: Reports: Patient History Limitations: Reports: No Limitations - History of Present Illness INITIAL COMMENTS - FREE TEXT/NARRATIVE: This is an 79-year-old female. She comes tonight because she woke around 11 PM and felt like her mouth was on fire and maybe her tongue was slightly swollen. She was afraid the implants in her lower jaw might be infected. She says back in February all her bottom teeth were pulled and on May 21 she had 2 implants placed in her lower jaw. She has not noticed them bothering her but then when she woke up with her mouth on fire she felt that they might be infected so she comes to the ER. She denies any fever or chills. She denies any other acute symptoms. mouth Pain Score (Numeric/FACES): 6 - Related Data Allergies Allergy/AdvReac Type Severity Reaction Status Date / Time azithromycin [From Zithromax] Allergy Anaphylactic Verified 06/01/20 00:37 Shock bupropion [From Zyban] Allergy Cannot Verified 06/01/20 00:37 Remember denosumab [From Prolia] Allergy Cannot Verified 06/01/20 00:37 Remember ezetimibe [From Zetia] Allergy Cannot Verified 06/01/20 00:37 Remember gabapentin Allergy Other Verified 06/01/20 00:37 latex Allergy Swelling Verified 06/01/20 00:37 oxaprozin Allergy Cannot Verified 06/01/20 00:37 Remember pineapple Allergy Cannot Verified 06/01/20 00:37 Remember rofecoxib [From Vioxx] Allergy Cannot Verified 06/01/20 00:37 Remember sertraline [From Zoloft] Allergy Rash Verified 06/01/20 00:37 simvastatin Allergy Cannot Verified 06/01/20 00:37 Remember Jrqblxb-Prd-Skg Reductase Allergy Leg Cramps Verified 06/01/20 00:37 Inhibitor Sulfa (Sulfonamide Allergy Cannot Verified 06/01/20 00:37 Antibiotics) Remember topiramate [From Topamax] Allergy Cannot Verified 06/01/20 00:37 Remember Home Meds: Home Meds Aspirin 162 mg PO DAILY 03/28/17 [History] Calcium Carbonate [Calcium] 1 tab PO DAILY 03/28/17 [History] Levothyroxine 25 mcg PO DAILY 03/28/17 [History] Multivitamin [Multivitamins] 1 cap PO DAILY 03/28/17 [History] Potassium Chloride 20 meq PO TID 03/28/17 [History] Ubidecarenone [Coenzyme Q-10] 30 mg PO DAILY 03/28/17 [History] Levothyroxine [Synthroid] 50 mcg PO ACBREAKFAST #90 tab 05/27/19 [Rx] amLODIPine [Norvasc] 5 mg PO DAILY #30 tab 02/08/20 [Rx] Diphenhyd/Lidocaine/MagAl/Jose [First-Mouthwash BLM Susp] 15 ml PO Q6H PRN #1 bottle 06/01/20 [Rx] Nystatin 5 ml PO QID #140 ml 06/01/20 [Rx] Past Medical History HEENT History: Reports: Cataract Other HEENT History: wears eyeglasses. 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: Reports: 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, , Spontaneous Musculoskeletal History: Reports: Back Pain, Chronic, Gout, Other (See Below) Other Musculoskeletal History: gout to great toes bialteral Neurological History: Reports: CVA, Other (See Below) Other Neuro History: hemorrahgic stroke Endocrine/Metabolic History: Reports: Hypothyroidism Oncologic (Cancer) History: Reports: Basal Cell Carcinoma, Other (See Below) Other Oncologic History: from nose - Infectious Disease History Infectious Disease History: Reports: Chicken Pox, Measles, Mumps - Past Surgical History HEENT Surgical History: Reports: Cataract Surgery GI Surgical History: Reports: Cholecystectomy Female Surgical History: Reports: Hysterectomy Other Female Surgeries/Procedures: bladder lift surgery. Endocrine Surgical History: Reports: None Musculoskeletal Surgical History: Reports: Knee Replacement, Other (See Below) Other Musculoskeletal Surgeries/Procedures:: Right knee replacement and surgical plate in right thigh Social & Family History - Family History Family Medical History: No Pertinent Family History - Tobacco Use Tobacco Use Status *Q: Never Tobacco User - Caffeine Use Caffeine Use: Reports: Coffee, Tea - Living Situation & Occupation Living situation: Reports: Occupation: Retired ED ROS ENT - Review of Systems Review Of Systems: See Below Constitutional: Denies: Fever, Chills HEENT: Reports: Other (Tongue and mouth feel like they are on fire) Respiratory: Denies: Shortness of Breath, Cough Cardiovascular: Reports: No Symptoms Endocrine: Reports: No Symptoms GI/Abdominal: Denies: Abdominal Pain, Nausea, Vomiting : Reports: No Symptoms Musculoskeletal: Reports: No Symptoms Skin: Reports: No Symptoms Neurological: Reports: No Symptoms Psychiatric: Reports: No Symptoms Hematologic/Lymphatic: Reports: No Symptoms ED EXAM, ENT - Physical Exam Exam: See Below Exam Limited By: No Limitations General Appearance: Alert, WD/WN, No Apparent Distress Eye Exam: Bilateral Eye: Normal Inspection Ears: Normal External Exam Nose: Normal Inspection Mouth/Throat: Other (Tongue and lower jaw gums are not swollen inflamed and there is no drainage. She does have these white plaques underneath her tongue that do not scrape off suggesting his oral candidiasis.) Head: Normocephalic Neck: Supple Respiratory/Chest: No Respiratory Distress Back: Full Range of Motion Extremities: Normal Inspection, Normal Range of Motion Neurological: Alert, Oriented Psychiatric: Normal Affect, Normal Mood Skin: Warm, Dry Course - Vital Signs Last Recorded V/S: Last Vital Signs Temp 97.5 F 06/01/20 00:41 Pulse 85 06/01/20 00:41 Resp 16 06/01/20 00:41 BP 149/101 H 06/01/20 00:41 Pulse Ox 92 L 06/01/20 00:41 - Orders/Labs/Meds Orders: Active Orders 24 hr Category Date Time Status Diphenhyd/Lidocaine/MagAl/Jose [First-Mouthwash BLM Med 06/01/20 01:02 Once Susp] 30 ml PO ONETIME ONE Nystatin [Mycostatin] Med 06/01/20 01:01 Once 5 ml PO ONETIME ONE Departure - Departure Time of Disposition: 01:05 Disposition: Home, Self-Care 01 Condition: Fair Clinical Impression: Oral pharyngeal candidiasis - Discharge Information *PRESCRIPTION DRUG MONITORING PROGRAM REVIEWED*: Not Applicable *COPY OF PRESCRIPTION DRUG MONITORING REPORT IN PATIENT BRE: Not Applicable Prescriptions: Diphenhyd/Lidocaine/MagAl/Jose [First-Mouthwash BLM Susp] 15 ml PO Q6H PRN #1 bottle PRN Reason: Pain Nystatin 5 ml PO QID #140 ml Instructions: Oral Thrush, Adult, Nlax-ci-Ywlw Referrals: Juan Miguel,Vashti M, [employer] [Primary Care Provider] - Additional Instructions: Get the prescription filled tomorrow for the nystatin oral suspension, take 5 cc which is equal to 1 teaspoon and swish it in your mouth for 30 seconds and then swallow it and do this 4 times a day, you will have enough medicine for 7 days. Use the first mouthwash to help with the burning and the soreness in the mouth, follow up with your dentist this week for recheck of the oral candidiasis, return to the ER if needed Sepsis Event Note (ED) - Evaluation Sepsis Screening Result: No Definite Risk - Focused Exam Vital Signs: Vital Signs Temp Pulse Resp BP Pulse Ox 06/01/20 00:41 97.5 F 85 16 149/101 H 92 L - My Orders Last 24 Hours: My Active Orders 06/01/20 01:01 Nystatin [Mycostatin] 5 ml PO ONETIME ONE 06/01/20 01:02 Diphenhyd/Lidocaine/MagAl/Jose [First-Mouthwash BLM Susp] 30 ml PO ONETIME ONE - Assessment/Plan Last 24 Hours: My Active Orders 06/01/20 01:01 Nystatin [Mycostatin] 5 ml PO ONETIME ONE 06/01/20 01:02 Diphenhyd/Lidocaine/MagAl/Jose [First-Mouthwash BLM Susp] 30 ml PO ONETIME ONE
== END 2020-06-01 01:25 | disposition home or self-care (01) ==
LOC: JD.ED 00:25
DX: B37.0 Candidal stomatitis (principal); I10 Essential (primary) hypertension; J44.9 Chronic obstructive pulmonary disease, unspecified; M10.9 Gout, unspecified; E03.9 Hypothyroidism, unspecified; Z88.1 Allergy status to other antibiotic agents; Z88.8 Allergy status to other drugs, medicaments and biological substances; Z91.040 Latex allergy status; Z91.018 Allergy to other foods; Z88.2 Allergy status to sulfonamides; Z79.82 Long term (current) use of aspirin; Z79.899 Other long term (current) drug therapy
CPT/HCPCS: 99282; A9270; 99283

== ENCOUNTER 2020-10-26 17:19 | Emergency (ER) | payer MEDICARE, BC ==
[2020-10-26] MEDS ORDERED: Phenazopyridine 95 MG Tab PO ONE (18:05)
--- NOTE | 2020-10-26 18:13 | EDM.PDOC ---
ED HPI GENERAL MEDICAL PROBLEM - General Chief Complaint: Genitourinary Problem Stated Complaint: BLOOD IN URINE/PAINFUL URINATION Time Seen by Provider: 10/26/20 17:45 Source of Information: Reports: Patient, RN Notes Reviewed History Limitations: Reports: No Limitations - History of Present Illness INITIAL COMMENTS - FREE TEXT/NARRATIVE: Patient is an 80-year-old female who presents to the ER for the evaluation of her UTI-like symptoms. Patient notes that she is prone to recurrent UTIs. States that the symptoms started yesterday. Notes that she does use the [place] swimming pool, and/or hot tub for exercise purposes. States that when she uses a hot tub she frequently gets these UTIs. She is not having any fevers or chills, nausea or vomiting. States that she is having an immense amount of dysuria, urinary frequency. She has not taken any sort of Azo, or other supplements at this time for ongoing urinary symptoms. The patient notes that she would have come in yesterday, but she had eaten a poppyseed strudel, and was told by her family members, that this may show up in her blood work, so she put off coming to seek management. Primary care provider is Vashti Bullard. Bilateral Lower Abdomen Pain Score (Numeric/FACES): 3 - Related Data Allergies Allergy/AdvReac Type Severity Reaction Status Date / Time azithromycin [From Zithromax] Allergy Anaphylactic Verified 10/26/20 17:53 Shock bupropion [From Zyban] Allergy Cannot Verified 10/26/20 17:53 Remember denosumab [From Prolia] Allergy Cannot Verified 10/26/20 17:53 Remember ezetimibe [From Zetia] Allergy Cannot Verified 10/26/20 17:53 Remember gabapentin Allergy Other Verified 10/26/20 17:53 latex Allergy Swelling Verified 10/26/20 17:53 oxaprozin Allergy Cannot Verified 10/26/20 17:53 Remember pineapple Allergy Cannot Verified 10/26/20 17:53 Remember rofecoxib [From Vioxx] Allergy Cannot Verified 10/26/20 17:53 Remember sertraline [From Zoloft] Allergy Rash Verified 10/26/20 17:53 simvastatin Allergy Cannot Verified 10/26/20 17:53 Remember Vqoelol-Oin-Rqw Reductase Allergy Leg Cramps Verified 10/26/20 17:53 Inhibitor Sulfa (Sulfonamide Allergy Cannot Verified 10/26/20 17:53 Antibiotics) Remember topiramate [From Topamax] Allergy Cannot Verified 10/26/20 17:53 Remember Home Meds: Home Meds Aspirin 162 mg PO DAILY 03/28/17 [History] Calcium Carbonate [Calcium] 1 tab PO DAILY 03/28/17 [History] Levothyroxine 25 mcg PO DAILY 03/28/17 [History] Multivitamin [Multivitamins] 1 cap PO DAILY 03/28/17 [History] Potassium Chloride 20 meq PO TID 03/28/17 [History] Ubidecarenone [Coenzyme Q-10] 30 mg PO DAILY 03/28/17 [History] Levothyroxine [Synthroid] 50 mcg PO ACBREAKFAST #90 tab 05/27/19 [Rx] amLODIPine [Norvasc] 5 mg PO DAILY #30 tab 02/08/20 [Rx] Diphenhyd/Lidocaine/MagAl/Jose [First-Mouthwash BLM Susp] 15 ml PO Q6H PRN #1 bottle 06/01/20 [Rx] Nystatin 5 ml PO QID #140 ml 06/01/20 [Rx] Cefdinir [Omnicef] 300 mg PO BID 5 Days #10 cap 10/26/20 [Rx] Past Medical History HEENT History: Reports: Cataract Other HEENT History: wears eyeglasses. 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 Endocrine Surgical History: Reports: None Musculoskeletal Surgical History: Reports: Knee Replacement, Other (See Below) Other Musculoskeletal Surgeries/Procedures:: Right knee replacement and surgical plate in right thigh Social & Family History - Family History Family Medical History: No Pertinent Family History - Tobacco Use Tobacco Use Status *Q: Former Tobacco User Used Tobacco, but Quit: Yes Month/Year Tobacco Last Used: 08/1998 - Caffeine Use Caffeine Use: Reports: Coffee - Recreational Drug Use Recreational Drug Use: No - Living Situation & Occupation Living situation: Reports: Occupation: Retired ED ROS GENERAL - Review of Systems Review Of Systems: Comprehensive ROS is negative, except as noted in HPI. ED EXAM, RENAL/ - Physical Exam Exam: See Below Exam Limited By: No Limitations General Appearance: Alert, WD/WN, No Apparent Distress Respiratory/Chest: No Respiratory Distress, Lungs Clear, Normal Breath Sounds, No Accessory Muscle Use, Chest Non-Tender Cardiovascular: Normal Peripheral Pulses, Regular Rate, Rhythm, No Edema GI/Abdominal: Normal Bowel Sounds, Soft, Non-Tender Neurological: Alert, Oriented, Normal Cognition, No Motor/Sensory Deficits Psychiatric: Normal Affect, Normal Mood Skin Exam: Warm, Dry, Intact, Normal Color, No Rash Course - Vital Signs Last Recorded V/S: Last Vital Signs Temp 98.4 F 10/26/20 17:45 Pulse 69 10/26/20 17:45 Resp 18 10/26/20 17:45 BP 136/72 10/26/20 17:45 Pulse Ox 96 10/26/20 17:45 - Orders/Labs/Meds Orders: Active Orders 24 hr Category Date Time Status CULTURE URINE [MREF] Urgent Lab 10/26/20 18:46 Ordered Labs: Laboratory Tests 10/26/20 Range/Units 18:15 Urine Color Dark yellow (Yellow) Urine Appearance Cloudy H (Clear) Urine pH 6.0 (5.0-8.0) Ur Specific [place] > or = 1.030 (1.005-1.030) Urine Protein 3+ H (Negative) Urine Glucose (UA) Negative (Negative) Urine Ketones 1+ H (Negative) Urine Occult Blood 3+ H (Negative) Urine Nitrite Negative (Negative) Urine Bilirubin 1+ H (Negative) Urine Urobilinogen 0.2 (0.2-1.0) Ur Leukocyte Esterase 3+ H (Negative) U Hyaline Cast (Auto) 0-5 (0-5) /lpf Urine RBC 5-10 H (0-5) /hpf Urine WBC >100 H (0-5) /hpf Ur Squamous Epith Cells 0-5 (0-5) /hpf Urine Bacteria Moderate H (FEW) /hpf Urine Mucus Rare (FEW) /hpf Meds: Medications Discontinued Medications Generic Name Dose Route Start Last Admin Trade Name Andrewsq PRN Reason Stop Dose Admin Phenazopyridine HCl 95 mg 10/26/20 18:05 10/26/20 18:34 Phenazopyridine 95 Mg Tab PO 10/26/20 18:06 95 mg ONETIME ONE Administration - Re-Assessments/Exams Free Text/Narrative Re-Assessment/Exam: 10/26/20 18:12 Patient presents to the ER for the evaluation of her ongoing UTI-like symptoms, we will go ahead and get a urinalysis for management, and give her 1 dose of Azo while being in the ER, after she has given us the sample. 10/26/20 18:47 Urinalysis is grossly positive for UTI at this time. We will discharge her home with a prescription for Omnicef, get a urine culture and have her follow-up if not much better in 48 hours. Departure - Departure Time of Disposition: 18:47 Disposition: Home, Self-Care 01 Condition: Good Clinical Impression: UTI (urinary tract infection) Qualifiers: Urinary tract infection type: acute cystitis Hematuria presence: with hematuria Qualified Code(s): N30.01 - Acute cystitis with hematuria - Discharge Information *PRESCRIPTION DRUG MONITORING PROGRAM REVIEWED*: No *COPY OF PRESCRIPTION DRUG MONITORING REPORT IN PATIENT BRE: No Prescriptions: Cefdinir [Omnicef] 300 mg PO BID 5 Days #10 cap Instructions: Urinary Tract Infection, Adult, [id number] Forms: ED Department Discharge Additional Instructions: You have been evaluated in the ED for your urinary symptoms. Your urinalysis was consistent with an acute urinary tract infection. Your urine was sent for culture, and you will be notified if you should need a change in your antibiotic. This may take up to 48 hours to result. You may take AZO for urinary pain relief. This is available over the counter, and can be attained at any retail store like [employer] or any pharmacy. Please be aware that this medication will make your urine turn orange. You should only use this medication for a time period not longer than 72 hours. You have been given a prescription for Omnicef (cefdinir), 300 mg 1 tablet 2 times a day for 5 days. Please note that the antibiotics can take up to 48 hours to start working. This medication was electronically sent to the [facility] located near [facility]. Please increase your oral fluid intake and try to stay adequately hydrated. Please return to the ED if your symptoms change or worsen. Sepsis Event Note (ED) - Evaluation Sepsis Screening Result: No Definite Risk - Focused Exam Vital Signs: Vital Signs Temp Pulse Resp BP Pulse Ox 10/26/20 17:45 98.4 F 69 18 136/72 96 - My Orders Last 24 Hours: My Active Orders 10/26/20 18:46 CULTURE URINE [MREF] Urgent - Assessment/Plan Last 24 Hours: My Active Orders 10/26/20 18:46 CULTURE URINE [MREF] Urgent
== END 2020-10-26 19:10 | disposition home or self-care (01) ==
LOC: JD.ED 17:19
DX: N30.01 Acute cystitis with hematuria (principal); I10 Essential (primary) hypertension; J44.9 Chronic obstructive pulmonary disease, unspecified; E03.9 Hypothyroidism, unspecified; M10.9 Gout, unspecified; Z87.891 Personal history of nicotine dependence; Z88.1 Allergy status to other antibiotic agents; Z88.8 Allergy status to other drugs, medicaments and biological substances; Z91.040 Latex allergy status; Z91.018 Allergy to other foods; Z88.2 Allergy status to sulfonamides; Z79.82 Long term (current) use of aspirin; Z79.899 Other long term (current) drug therapy
CPT/HCPCS: 81001; 87086; 99283; A9270

== ENCOUNTER 2021-09-03 11:26 | Emergency (ER) | payer MEDICARE, BC ==
[2021-09-03] MEDS ORDERED: Sodium Chloride 0.9% 10 ML Syringe FLUSH PRN (12:51)
== END 2021-09-03 17:00 | disposition home or self-care (01) ==
LOC: JD.ED 11:26
DX: N30.00 Acute cystitis without hematuria (principal); R53.83 Other fatigue; E78.00 Pure hypercholesterolemia, unspecified; I10 Essential (primary) hypertension; Z86.73 Personal history of transient ischemic attack (TIA), and cerebral infarction without residual deficits; Z88.1 Allergy status to other antibiotic agents; Z91.040 Latex allergy status; Z91.018 Allergy to other foods; Z88.2 Allergy status to sulfonamides; Z79.82 Long term (current) use of aspirin; Z79.899 Other long term (current) drug therapy; Z87.891 Personal history of nicotine dependence; Z20.822 Contact with and (suspected) exposure to COVID-19
CPT/HCPCS: 36415; 71045; 80053; 81001; 82306; 82607; 83605; 83880; 84443; 84484; 85007; 85027; 85610; 86140; 87040; 93005; 99284; J3490; U0002; 93010

== ENCOUNTER 2022-06-18 14:51 | Emergency (ER) | payer MEDICARE, BC ==
[2022-06-18] MEDS ORDERED: Nitrofurantoin Monohydrate/Macrocrystalline 100 MG Cap PO STA (16:45)
== END 2022-06-18 17:53 | disposition home or self-care (01) ==
LOC: JD.ED 14:51
DX: U07.1 COVID-19 (principal); N30.90 Cystitis, unspecified without hematuria; I10 Essential (primary) hypertension; E03.9 Hypothyroidism, unspecified; Z87.891 Personal history of nicotine dependence; Z79.899 Other long term (current) drug therapy; Z79.82 Long term (current) use of aspirin; Z88.1 Allergy status to other antibiotic agents; Z88.8 Allergy status to other drugs, medicaments and biological substances; Z91.040 Latex allergy status; Z91.018 Allergy to other foods; Z88.2 Allergy status to sulfonamides
CPT/HCPCS: 81001; 87086; 99284; A9270; 99283

== ENCOUNTER 2022-08-10 17:26 | Emergency (ER) | payer MEDICARE, BC | END 2022-08-10 19:24 | disposition home or self-care (01) | LOC: JD.ED 17:26 | DX: H66.001 Acute suppurative otitis media without spontaneous rupture of ear drum, right ear (principal); I10 Essential (primary) hypertension; J44.9 Chronic obstructive pulmonary disease, unspecified; M10.9 Gout, unspecified; E03.9 Hypothyroidism, unspecified; Z86.16 Personal history of COVID-19; Z88.8 Allergy status to other drugs, medicaments and biological substances; Z91.040 Latex allergy status; Z91.018 Allergy to other foods; Z88.2 Allergy status to sulfonamides; Z88.1 Allergy status to other antibiotic agents; Z79.82 Long term (current) use of aspirin; Z79.899 Other long term (current) drug therapy | CPT/HCPCS: 71045; 71045-26; 99283 ==

== ENCOUNTER 2022-09-28 05:17 | Emergency (ER) | payer MEDICARE, BC | END 2022-09-28 06:03 | disposition home or self-care (01) | LOC: JD.ED 05:17 | DX: H10.9 Unspecified conjunctivitis (principal); I10 Essential (primary) hypertension; J44.9 Chronic obstructive pulmonary disease, unspecified; M10.9 Gout, unspecified; E03.9 Hypothyroidism, unspecified; Z87.891 Personal history of nicotine dependence; Z88.8 Allergy status to other drugs, medicaments and biological substances; Z88.1 Allergy status to other antibiotic agents; Z91.040 Latex allergy status; Z91.018 Allergy to other foods; Z88.2 Allergy status to sulfonamides; Z79.899 Other long term (current) drug therapy; Z79.82 Long term (current) use of aspirin | CPT/HCPCS: 99283 ==

== ENCOUNTER 2023-09-17 07:59 | Inpatient (IN) | payer MEDICARE, BC ==
[2023-09-17 08:53] LABS: BASOPHILS ABSOLUTE AUTO 0.1 K/mm3 (0.0-0.2); BASOPHILS PERCENT AUTO 0.9 % (0.0-1.0); EOSINOPHILS ABSOLUTE AUTO 0.3 K/mm3 (0.0-0.4); EOSINOPHILS PERCENT AUTO 4.1 % (0.0-6.0); HEMATOCRIT 39.9 % (37.0-47.0); HEMOGLOBIN 11.9 gm/dl (12.0-16.0); IMMATURE GRAN ABSOLUTE AUTO 0.01 K/mm3 (0.00-0.05); IMMATURE GRAN PERCENT AUTO 0.2 % (0.0-0.4); LYMPHOCYTES ABSOLUTE AUTO 2.6 K/mm3 (1.0-4.8); LYMPHOCYTES PERCENT AUTO 39.7 % (24.0-44.0); MEAN CORPUSCULAR HEMOGLOBIN 24.3 pg (28.0-32.0); MEAN CORPUSCULAR HGB CONC 29.8 g/dl (32.0-36.0); MEAN CORPUSCULAR VOLUME 81.4 fl (83.0-99.0); MEAN PLATELET VOLUME 9.8 fl (9.4-12.3); MONOCYTES ABSOLUTE AUTO 0.5 K/mm3 (0.0-0.8); MONOCYTES PERCENT AUTO 7.8 % (0.0-8.0); NEUTROPHILS ABSOLUTE AUTO 3.1 K/mm3 (1.8-7.7); NEUTROPHILS PERCENT AUTO 47.3 % (41.0-71.0); PLATELET COUNT,PLT 258 K/mm3 (150-400); WHITE BLOOD CELL COUNT,WBC 6.55 K/mm3 (3.9-11.3)
[2023-09-17 09:17] LABS: A/G RATIO 1.2 (1-2); ALBUMIN 3.7 g/dl (3.4-5.0); BILIRUBIN TOTAL 0.2 mg/dL (0.2-1.0); CALCIUM 9.4 mg/dL (8.5-10.1); EST CRCL DRUG DOSING (CG) 31.04 mL/min; PROTEIN TOTAL,TP 6.9 g/dl (6.4-8.2)
[2023-09-17] MEDS: Aspirin 81 MG Tab.Chew PO ONE (09:20)
[2023-09-17] MEDS: Sodium Chloride 0.9% 500 ML IV ONE (09:20)
[2023-09-17] MEDS: Nitroglycerin 0.4 MG Tab.SL SL PRN (09:21)
[2023-09-17] MEDS: Sodium Chloride 0.9% 10 ML Syringe FLUSH PRN ×2 (09:22→09:48)
[2023-09-17] MEDS: Iopamidol 755 Mg/ML 100 ML Bottle IVPUSH ONE (09:47)
[2023-09-17] MEDS: Sodium Chloride 0.9% 100 ML IV SCH (09:48)
[2023-09-17 10:21] LABS: CORONAVIRUS COVID-19 NAA NEGATIVE (NEGATIVE); INFLUENZA A NAA NEGATIVE (NEGATIVE); RESPIRATORY SYNCYTIAL VIR NAA NEGATIVE (NEGATIVE)
[2023-09-17] MEDS: methylPREDNISolone Sodium Succinate 125 MG/2 ML SDV IVPUSH ONE (13:23)
[2023-09-17] MEDS: Albuterol 0.083% 2.5 MG/3 ML Neb Soln NEB ONE ×3 (13:50→14:24)
[2023-09-17] MEDS: Ipratropium 0.02% 0.5 MG/2.5 ML Neb Soln NEB ONE ×3 (13:54→14:24)
[2023-09-17] MEDS: Acetaminophen 325 MG Tab PO ONE (14:40)
[2023-09-17] MEDS: Acetaminophen 325 MG Tab PO SCH (21:29)
[2023-09-17] MEDS: Enoxaparin 40 MG/0.4 ML Syringe SUBCUT SCH (21:30)
[2023-09-18 00:38] LABS: HEMATOCRIT 36.8 % (37.0-47.0); HEMOGLOBIN 11.3 gm/dl (12.0-16.0); IMMATURE GRAN ABSOLUTE AUTO 0.01 K/mm3 (0.00-0.05); IMMATURE GRAN PERCENT AUTO 0.3 % (0.0-0.4); LYMPHOCYTES ABSOLUTE AUTO 0.7 K/mm3 (1.0-4.8); LYMPHOCYTES PERCENT AUTO 17.5 % (24.0-44.0); MEAN CORPUSCULAR HEMOGLOBIN 24.7 pg (28.0-32.0); MEAN CORPUSCULAR HGB CONC 30.7 g/dl (32.0-36.0); MEAN CORPUSCULAR VOLUME 80.3 fl (83.0-99.0); MEAN PLATELET VOLUME 9.9 fl (9.4-12.3); MONOCYTES PERCENT AUTO 0.3 % (0.0-8.0); NEUTROPHILS PERCENT AUTO 81.9 % (41.0-71.0); PLATELET COUNT,PLT 252 K/mm3 (150-400); RED BLOOD CELL COUNT 4.58 M/mm3 (4.10-5.30); WHITE BLOOD CELL COUNT,WBC 3.71 K/mm3 (3.9-11.3)
[2023-09-18] MEDS: Levothyroxine 50 MCG Tab PO SCH (06:42)
[2023-09-18] MEDS: Citalopram 20 MG Tab PO SCH (08:16)
[2023-09-18] MEDS: Aspirin 81 MG Tab.EC PO SCH (08:17)
[2023-09-18] MEDS: Albuterol/Ipratropium 3.0-0.5 MG/3 ML Neb Soln NEB SCH (10:32)
[2023-09-18] MEDS: methylPREDNISolone Sodium Succinate 40 MG/1 ML SDV IVPUSH SCH (11:18)
[2023-09-19] MEDS: predniSONE 20 MG Tab PO SCH (11:03)
[2023-09-19] MEDS: Enoxaparin 40 MG/0.4 ML Syringe SUBCUT SCH (21:30)
== END 2023-09-20 13:31 | disposition home or self-care (01) | DRG 189 ==
LOC: JD.ED 07:59 → JD.MS 12:51
PROVIDERS: ADMIT Family Medicine; ATTEND Internal Medicine
DX: R07.9 Chest pain, unspecified (principal); J96.01 Acute respiratory failure with hypoxia; R09.02 Hypoxemia; I10 Essential (primary) hypertension; J44.1 Chronic obstructive pulmonary disease with (acute) exacerbation; J67.9 Hypersensitivity pneumonitis due to unspecified organic dust; Z66 Do not resuscitate; N18.32 Chronic kidney disease, stage 3b; I12.9 Hypertensive chronic kidney disease with stage 1 through stage 4 chronic kidney disease, or unspecified chronic kidney disease; S46.911A Strain of unspecified muscle, fascia and tendon at shoulder and upper arm level, right arm, initial encounter; E78.00 Pure hypercholesterolemia, unspecified; Z79.890 Hormone replacement therapy; M10.9 Gout, unspecified; K59.09 Other constipation; H54.7 Unspecified visual loss; K21.9 Gastro-esophageal reflux disease without esophagitis; E03.9 Hypothyroidism, unspecified; Z96.659 Presence of unspecified artificial knee joint; I25.10 Atherosclerotic heart disease of native coronary artery without angina pectoris; R91.1 Solitary pulmonary nodule; F32.89 Other specified depressive episodes; Z88.8 Allergy status to other drugs, medicaments and biological substances; Z91.040 Latex allergy status; Z91.018 Allergy to other foods; Z88.1 Allergy status to other antibiotic agents; Z88.2 Allergy status to sulfonamides; Z79.82 Long term (current) use of aspirin; Z79.899 Other long term (current) drug therapy; Z95.0 Presence of cardiac pacemaker; Z86.73 Personal history of transient ischemic attack (TIA), and cerebral infarction without residual deficits; Z86.16 Personal history of COVID-19; Z98.49 Cataract extraction status, unspecified eye; Z90.49 Acquired absence of other specified parts of digestive tract; Z90.710 Acquired absence of both cervix and uterus; Z98.890 Other specified postprocedural states; Z87.891 Personal history of nicotine dependence; Z85.828 Personal history of other malignant neoplasm of skin; X58.XXXA Exposure to other specified factors, initial encounter
CPT/HCPCS: 0241U; 36415; 71275; 80053; 83690; 83880; 84484; 85025; 85379; 94640; 94760; 94761; 97161; 99285; A9270-GY; J1650; J2919; J3490; J7030; J7512; J7620-GY; Q9967

== ENCOUNTER 2024-05-11 09:27 | Emergency (ER) | payer MEDICARE, BC | END 2024-05-11 11:05 | disposition home or self-care (01) | LOC: JD.ED 09:27 | DX: N64.52 Nipple discharge (principal); E78.00 Pure hypercholesterolemia, unspecified; I10 Essential (primary) hypertension; J44.9 Chronic obstructive pulmonary disease, unspecified; Z95.0 Presence of cardiac pacemaker; Z91.040 Latex allergy status; Z88.8 Allergy status to other drugs, medicaments and biological substances; Z91.018 Allergy to other foods; Z88.1 Allergy status to other antibiotic agents; Z88.2 Allergy status to sulfonamides; Z79.82 Long term (current) use of aspirin; Z79.51 Long term (current) use of inhaled steroids; Z79.890 Hormone replacement therapy; Z79.899 Other long term (current) drug therapy; Z86.16 Personal history of COVID-19; Z90.710 Acquired absence of both cervix and uterus; Z90.49 Acquired absence of other specified parts of digestive tract | CPT/HCPCS: 87070; 87075; 87205; 99283 ==

== ENCOUNTER 2024-05-12 17:13 | Emergency (ER) | payer MEDICARE, BC ==
[2024-05-12] MEDS: Doxycycline Monohydrate 100 MG Cap PO ONE (18:35)
== END 2024-05-12 18:43 | disposition home or self-care (01) ==
LOC: JD.ED 17:13
DX: N64.52 Nipple discharge (principal); N63.25 Unspecified lump in the left breast, overlapping quadrants; I10 Essential (primary) hypertension; E78.00 Pure hypercholesterolemia, unspecified; Z95.5 Presence of coronary angioplasty implant and graft; J44.9 Chronic obstructive pulmonary disease, unspecified; Z86.73 Personal history of transient ischemic attack (TIA), and cerebral infarction without residual deficits; E03.9 Hypothyroidism, unspecified; Z90.49 Acquired absence of other specified parts of digestive tract; Z90.710 Acquired absence of both cervix and uterus; Z91.040 Latex allergy status; Z88.1 Allergy status to other antibiotic agents; Z88.8 Allergy status to other drugs, medicaments and biological substances; Z88.2 Allergy status to sulfonamides; Z79.82 Long term (current) use of aspirin; Z79.899 Other long term (current) drug therapy; Z79.890 Hormone replacement therapy; Z79.51 Long term (current) use of inhaled steroids
CPT/HCPCS: 99283; A9270

== ENCOUNTER 2024-06-08 07:28 | Day surgery (SDC) | payer MEDICARE, BC ==
[~2024-06-08 07:28] MED LIST: Sodium Chloride 0.9% 10 ML Syringe FLUSH PRN; Sodium Chloride 0.9% 10 ML Syringe FLUSH SCH
[2024-06-08] MEDS: Lactated Ringers 1,000 ML IV SCH (08:00)
[2024-06-08] MEDS ORDERED: Lidocaine 1% 4 ML ONE (08:11)
[2024-06-08] MEDS ORDERED: Propofol 200 MG/20 ML SDV ONE (08:11)
== END 2024-06-08 10:15 | disposition home or self-care (01) ==
LOC: JD.SDS 07:28
PROVIDERS: ATTEND Surgery
DX: D12.0 Benign neoplasm of cecum (principal); D12.2 Benign neoplasm of ascending colon; D12.8 Benign neoplasm of rectum; K29.81 Duodenitis with bleeding; K31.89 Other diseases of stomach and duodenum; K20.90 Esophagitis, unspecified without bleeding; K92.1 Melena; K27.9 Peptic ulcer, site unspecified, unspecified as acute or chronic, without hemorrhage or perforation; K44.9 Diaphragmatic hernia without obstruction or gangrene; K57.30 Diverticulosis of large intestine without perforation or abscess without bleeding; K64.8 Other hemorrhoids; I10 Essential (primary) hypertension; Z87.891 Personal history of nicotine dependence; Z86.16 Personal history of COVID-19; Z91.040 Latex allergy status; Z88.8 Allergy status to other drugs, medicaments and biological substances; Z91.018 Allergy to other foods; Z79.82 Long term (current) use of aspirin; Z79.899 Other long term (current) drug therapy; Z79.890 Hormone replacement therapy
CPT/HCPCS: 43239; 45380; J2003; J2704; J7120

== ENCOUNTER 2024-06-22 11:50 | Emergency (ER) | payer MEDICARE, BC ==
[2024-06-22 13:17] LABS: BASOPHILS PERCENT AUTO 0.3 % (0.0-1.0); EOSINOPHILS PERCENT AUTO 0.2 % (0.0-6.0); HEMATOCRIT 41.8 % (37.0-47.0); IMMATURE GRAN ABSOLUTE AUTO 0.16 K/mm3 (0.00-0.05); IMMATURE GRAN PERCENT AUTO 1.3 % (0.0-0.4); LYMPHOCYTES ABSOLUTE AUTO 1.7 K/mm3 (1.0-4.8); LYMPHOCYTES PERCENT AUTO 13.7 % (24.0-44.0); MEAN CORPUSCULAR HEMOGLOBIN 29.6 pg (28.0-32.0); MEAN CORPUSCULAR HGB CONC 32.1 g/dl (32.0-36.0); MEAN CORPUSCULAR VOLUME 92.3 fl (83.0-99.0); MEAN PLATELET VOLUME 9.7 fl (9.4-12.3); MONOCYTES ABSOLUTE AUTO 0.9 K/mm3 (0.0-0.8); NEUTROPHILS ABSOLUTE AUTO 9.4 K/mm3 (1.8-7.7); NEUTROPHILS PERCENT AUTO 77.5 % (41.0-71.0); RED BLOOD CELL COUNT 4.53 M/mm3 (4.10-5.30)
[2024-06-22 13:19] LABS: HEMOGLOBIN 13.4 gm/dl (12.0-16.0); PLATELET COUNT,PLT 336 K/mm3 (150-400)
[2024-06-22 13:53] LABS: A/G RATIO 0.6 (1-2); ALBUMIN 2.7 g/dl (3.4-5.0); ANION GAP 13.4 (5-15); BILIRUBIN TOTAL 0.4 mg/dL (0.2-1.0); BUN/CREATININE RATIO 17.5 (14-18); CALCIUM 10.5 mg/dL (8.5-10.1); CREATININE 1.2 mg/dL (0.55-1.02); EST CRCL DRUG DOSING (CG) 25.86 mL/min; POTASSIUM,K 4.4 mEq/L (3.5-5.1); TSH 1.856 uIU/mL (0.358-3.74)
[2024-06-22 15:42] LABS: APPEARANCE,URINE SLT CLOUDY (Clear); BILIRUBIN,URINE NEGATIVE (Negative); COLOR,URINE YELLOW (Yellow); GLUCOSE,URINE NEGATIVE (Negative); KETONES,URINE TRACE (Negative); LEUKOCYTE ESTERASE,URINE 1+ (Negative); NITRITE,URINE POSITIVE (Negative); OCCULT BLOOD,URINE 1+ (Negative); PROTEIN,URINE 2+ (Negative); UROBILINOGEN,URINE 0.2 (0.2-1.0)
[2024-06-22 15:53] LABS: BARBITURATE SCREEN,URINE NEGATIVE (CUTOFF=200); BENZODIAZEPINES SCREEN,URINE NEGATIVE (CUTOFF=150); BUPRENORPHINE SCREEN,URINE NEGATIVE (CUTOFF=10); METHADONE SCREEN, URINE NEGATIVE (CUTOFF=200); METHAMPHETAMINES SCREEN, URINE NEGATIVE (CUTOFF=500); OXYCODONE SCREEN,URINE NEGATIVE (CUT0FF=100); THC SCREEN,URINE 20 NG/ML NEGATIVE (CUTOFF=50)
[2024-06-22 15:58] LABS: AMPHETAMINES SCREEN, URINE NEGATIVE (CUTOFF=500)
[2024-06-22 15:59] LABS: BACTERIA,URINE MANY /hpf (FEW); MUCUS,URINE FEW /hpf (FEW); WBC,URINE >100 /hpf (0-5)
[2024-06-22] MEDS: Levofloxacin 750 MG Tab PO STA (16:21)
== END 2024-06-22 16:34 | disposition home or self-care (01) ==
LOC: EEVIPCON 11:50 → JD.ED 11:50
DX: N30.00 Acute cystitis without hematuria (principal); F32.A Depression, unspecified; I10 Essential (primary) hypertension; E03.9 Hypothyroidism, unspecified; J44.9 Chronic obstructive pulmonary disease, unspecified; K21.9 Gastro-esophageal reflux disease without esophagitis; M19.90 Unspecified osteoarthritis, unspecified site; Z95.0 Presence of cardiac pacemaker; Z88.8 Allergy status to other drugs, medicaments and biological substances; Z91.018 Allergy to other foods; Z91.040 Latex allergy status; Z88.2 Allergy status to sulfonamides; Z88.1 Allergy status to other antibiotic agents; Z79.82 Long term (current) use of aspirin; Z79.899 Other long term (current) drug therapy; Z79.890 Hormone replacement therapy; Z90.710 Acquired absence of both cervix and uterus; Z90.49 Acquired absence of other specified parts of digestive tract
CPT/HCPCS: 36415; 80053; 80143; 80179; 80306; 80307; 81001; 84443; 85025; 87086; 93005; 99285; A9270; 87088; 87186